=== PATIENT | female | born 1970 | race Caucasian/White ===

== ENCOUNTER 2023-02-15 11:07 | Outpatient (OUT) | payer OTHER, SELFPAY ==
[2023-02-15 12:36] LABS: Free T3 1.61 pg/mL (2.18-3.98)
== END 2023-02-15 11:08 ==
LOC: LAB 11:14
PROVIDERS: PCP Nurse Practitioner Family; Visit Provider Nurse Practitioner Family
DX: E03.9 Hypothyroidism, unspecified (principal)
CPT/HCPCS: 36415; 84436; 84443; 84481

== ENCOUNTER 2023-03-20 10:37 | Outpatient (OUT) | payer OTHER, SELFPAY ==
[2023-03-20 11:26] LABS: Alanine Aminotransferase 38 U/L (14-59); Albumin Level 3.9 g/dL (3.4-5.0); Alkaline Phosphatase 82 U/L (46-116); Anion Gap 13.2; Aspartate Amino Transferase 19 U/L (15-37); BUN Creatinine Ratio 19.7; Bilirubin Total 0.5 mg/dL (0.2-1.0); Calcium 9.2 mg/dL (8.5-10.1); Chloride 103 mmol/L (98-107); Estimated GFR (African America >60 (>=60); Estimated GFR (Non-African Ame >60 (>=60); Globulin 3.9 g/dL; Glucose 101 mg/dL (74-106); Potassium 4.2 mmol/L (3.5-5.1); Sodium 140 mmol/L (136-145); Total Protein 7.8 g/dL (6.4-8.2)
[2023-03-20 11:37] LABS: Chol HDL Ratio 5.5; Cholesterol 287 mg/dL (<=200); Free T3 1.79 pg/mL (2.18-3.98); HDL Cholesterol 52 mg/dL (40-60); Thyroid Stimulating Hormone 6.617 uIU/mL (0.358-3.740); Triglycerides 167 mg/dL (<=150); VLDL CHOLESTEROL 33.4 mg/dL
== END 2023-03-20 10:38 | disposition home or self-care (01) ==
PROVIDERS: PCP Nurse Practitioner Family; Visit Provider Nurse Practitioner Family
DX: Z00.00 Encounter for general adult medical examination without abnormal findings (principal)
CPT/HCPCS: 36415; 80053; 80061; 84436; 84443; 84481

== ENCOUNTER 2023-05-15 09:16 | Outpatient (OUT) | payer OTHER, SELFPAY ==
[2023-05-15 10:53] LABS: Carbon Dioxide 23.8 mmol/L (21.0-32.0); Chloride 105 mmol/L (98-107); Potassium 4.5 mmol/L (3.5-5.1); Sodium 139 mmol/L (136-145)
[2023-05-15 10:54] LABS: Alanine Aminotransferase 37 U/L (14-59); Albumin Globulin Ratio 0.9; Albumin Level 3.7 g/dL (3.4-5.0); Alkaline Phosphatase 94 U/L (46-116); Anion Gap 14.7; Aspartate Amino Transferase 22 U/L (15-37); BUN Creatinine Ratio 20.3; Bilirubin Total 0.3 mg/dL (0.2-1.0); Calcium 9.1 mg/dL (8.5-10.1); Cholesterol 214 mg/dL (<=200); Estimated GFR (African America >60 (>=60); Estimated GFR (Non-African Ame >60 (>=60); Globulin 3.9 g/dL; Glucose 103 mg/dL (74-106); HDL Cholesterol 53 mg/dL (40-60); Total Protein 7.6 g/dL (6.4-8.2); Triglycerides 95 mg/dL (<=150)
[2023-05-15 10:55] LABS: Thyroid Stimulating Hormone 2.541 uIU/mL (0.358-3.740)
== END 2023-05-15 09:17 | disposition home or self-care (01) ==
LOC: LAB 09:20
PROVIDERS: PCP Nurse Practitioner Family; Visit Provider Nurse Practitioner Family
DX: Z00.00 Encounter for general adult medical examination without abnormal findings (principal)
CPT/HCPCS: 36415; 80053; 80061; 84436; 84443; 84481

== ENCOUNTER 2024-05-12 10:33 | Outpatient (REF) | payer OTHER, SELFPAY ==
[2024-05-12 10:52] LABS: Internal Control Within Normal Limits; SARS-CoV-2 Ag POSITIVE (NEGATIVE)
== END 2024-05-12 10:34 | disposition home or self-care (01) ==
LOC: LAB 10:33
PROVIDERS: PCP Nurse Practitioner Family; Visit Provider Nurse Practitioner Family
DX: R09.81 Nasal congestion (principal)
CPT/HCPCS: 87811

== ENCOUNTER 2024-05-15 11:22 | Outpatient (REF) | payer OTHER, SELFPAY ==
[2024-05-15 12:21] LABS: Internal Control Within Normal Limits; SARS-CoV-2 Ag NEGATIVE (NEGATIVE)
== END 2024-05-15 11:23 | disposition home or self-care (01) ==
LOC: LAB 11:22
PROVIDERS: PCP Nurse Practitioner Family; Visit Provider Family Medicine
DX: U07.1 COVID-19 (principal)
CPT/HCPCS: 87811

== ENCOUNTER 2025-05-04 06:30 | Outpatient (OUT) | payer OTHER, SELFPAY ==
--- OUTSIDE RECORDS SUMMARY | 2024-11-01 10:06 | XMS_ITS ---
Author Organization The [facility] in [place] Address [address] [place] [address] Care Team Providers Care Medical Facilities Section Director Name Role Phone Rachel Plata Primary Care Provider [phone] [address] [place] Unavailable [phone] REASON FOR VISIT Cough Medications Medication SIG (Take, Route, Fr equency, Duration) Notes Start Date End Date Status Benzonatate 200 MG 1 capsule as needed Orally Three times a day for 10 days 11/01/2024 Active Encounters Encounter Location Date Provider Diagnosis [facility] [address] [facility] [place] [address] 11/01/2024 Te [place] Plan Of Treatment Medication Medication Name Sig Start Date Stop Date Notes Benzonatate 200 MG 1 capsule as needed Orally Three times a day for 10 days 11/01/2024 Progress Notes * Vianca BAILEY MDOB:[birth year] (54 yo F)Acc No.[id number]:11/01/2024 Patient: Vianca ARZOLA :1970 A ge:54 Y S ex:Female Address:[place] [address] * Refills Start Benzonatate Capsule, 200 MG, Orally, 30 Capsule, 1 capsule as needed, Three times a day, 10 days, Refills=0 * true * Date: Generated for Printi ng/Faxing/eTransmitting on: 0 05/04/2025 06:33 AM EDT
--- OUTSIDE RECORDS SUMMARY | 2024-11-14 11:00 | XMS_ITS ---
Author Organization The [facility] in [place] Address [address] [place] [address] Care Team Providers Care Publications Distribution Clerk Name Role Phone SherlynRachel Primary Care Provider Allergies Allergen (clinical drug ingredient) Drug/Non Drug Allergy documented on EMR Reaction Allergy Type Onset Date Status ciprofloxacin Cipro anaphylaxis Drug Allergy A ctive Keflex anaphylaxis Drug Allergy Activ e naproxen Naprosyn anaphylaxis Drug Allergy Activ e Latex Latex anaphylaxis Allergy Active Shellfish (FN) Shellfish-derived Products anaphylaxis Drug Allergy Active Penicillin anaphylaxis Drug Allergy Acti ve REASON FOR VISIT Presents to office with c/o still coughing since having walking pneumonia. Has some lingering laryngitis Medications Medication SIG (Take, Route, Frequency, Duration) Notes Start Date End Date Status predniSONE 20 MG 3 tablets Orally Onc e a day for 5 days 10/25/2024 Active Simvastatin 40 MG TAKE 1 TABLET BY ASHOK TH EVERY EVENING for 90 days Active Omeprazole 40 MG 1 capsule 30 minutes before morning meal Orally Once a day for 90 days 11/23/2023 Active Ibuprofen 800 MG TAKE 1 TABLET BY ASHOK TH EVERY 8 HOURS WITH FOOD OR MILK NEEDED for 30 Active FLUoxetine HCl 20 MG TAKE 3 CAPSULES BY MOUTH EVERY DAY for 90 Active Azithromycin 250 MG 2 tabs today then 1 tab Orally daily for 5 days 10/25/2024 Active Montelukast Sodium 10 MG TAKE 1 TABLET B Y MOUTH EVERY NIGHT for 90 Active Levothyroxine Sodium 150 MCG TAKE 1 TABL ET BY MOUTH EVERY DAY IN THE MORNING ON AN EMPTY STOMACH for 90 days Active Benzonatate 200 MG 1 capsule as needed Orally Three times a day for 10 days 11/01/2024 Active Adipex-P 37.5 MG 1 tablet before breakfast Orally Once a day for 30 days 10/17/2024 Active Social History Tobacco Use: Social History Observation Description Date Details (start date - stop date) Former Smoker 09/06/2004 - 09/06/2008 Tobacco Use/Smoking Question Answer Notes Patient is a former smoker When did you start smoking? 09/06/2004 When did you stop smoking? 09/06/2008 How long has it been since y ou last smoked? 5-10 years Additional Findings: Tobacco Non-User Ex -moderate cigarette smoker (10-19/day) Tobacco use other than smoking: Question Answer Notes Are you an other tobacco user? Yes e x chewer- 32 years Vital Signs Weight 232.4 lbs 11/14/2024 Height 65 in 11/14/2024 Blood pressure systolic 130 mm Hg 11/15/19 25 Blood pressure diastolic 86 mm Hg 025 Temperature 96.4 degrees Fahrenheit 11/15/19 25 Heart Rate 74 /min 11/14/2024 BMI 38.67 kg/m2 11/14/2024 Oximetry 99 % 11/14/2024 Encounters Encounter Location Date Provider Diagnosis [facility] [address] [place] [address] 11/14/2024 Rachel Plata Bronchitis J40 Assessments Encounter Date Diagnosis (ICD Code) Assessment Notes Treatment Notes Treatment Clinical Notes Section Notes 11/14/2024 Bronchitis (ICD-10 - J40) fu if not improving CXR , sputum cx next steps ok for OWN Plan Of Treatment Medication Medication Name Sig Start Date Stop Date Notes predniSONE 20 MG 3 tablets Orally Once a day for 5 days Azithromycin 250 MG 2 tabs today then 1 tab Orally daily for 5 days 10/25/2024 Treatment Notes Assessment Notes Bronchitis fu if not improving CXR , sputum cx next steps ok for OWN Next Appt Details Follow Up: prn, Reason: Progress Notes * Vianca BALIEY MDOB:[birth year] (54 yo F)Acc No.[id number]:11/14/2024 Progress Note Patient: Michael Vianca RODRIGEZ Provider: Nanda Plata ([facility]), AUTOMOBILE SEAT COVER INSTALLER :1970 A ge:54 Y S ex:Female Date:11/14/2024 Address:[address] [place], [id number] Check In:02:54 PM ESTCheck O ut:03:09 PM EST Subjective: * Chief Complaints: * 1 . Presents to office with c/o still coughing since having walking pneumonia. Has some lingering laryngitis. * HPI: G eneral: Had influenza A given zpack and steroid helped tessalon perles helped some coughs some, productive lay down rattling in lungs overall better but worse at night SOB with exertion. * ROS: G eneral/Constitutional: Fever d enies. H eadache d enies. W eight loss?denies. O phthalmologic: Discharge d enies. E ye Pain d enies. I tching and redness d enies. E NT: Patient admits l aryngitis. N jerad congestion d enies. N jerad discharge d enies. S ore throat d enies. C ardiovascular: Chest tightness/ heavy pressure d enies. R apid heart rate d enies. S welling of extremities d enies. C hest pain d enies. ? R espiratory: Productive cough a dmits and chest congestion. C hest pain d enies. C ough a dmits. S hortness of breath d enies. W heezing d enies. G astrointestinal: Abdominal pain d enies. C onstipation d enies. D ecreased appetite d enies. D iarrhea d enies. N ausea d enies. V omiting?denies. G enitourinary: Urinary incontinence d enies. P ainful urination d enies. M usculoskeletal: Back pain d enies. N maite pain d enies. M uscle aches d enies. S kin: Rash d enies. S kin lesion(s) d enies. ? * Active Problem List E66.9 Obese Modified On:11/23/2023W/U Status:confirmed E66.9 Class 2 obesity Modified On:08/08/2024W/U Status:confirmed * Medical History: A lcohol abuse, Asthma, Arthritis, Pratt esophagus, COVID-19, Carotid artery stenosis, Depression with anxiety, Hypertension, Hyperinsulinemia, Hyperlipidemia, Hypothyroidism, Gastro-esophageal reflux disease without esophagitis. * Surgical History: L eft Breast- softball size tissue removed , EGD 2008. * Family History: F ather: alive, Heart Valve issue. M other: alive, anxiety, atrial fib, diagnosed with Unspecified essential hypertension. B rother(s): alive. S ister(s): alive. 3 brother(s) , 1 sister(s) - healthy. . * Social History: T obacco Use: T obacco use other than smoking A re you an other tobacco user? Y es ex chewer- 32 years Tobacco Use/Smoking P atient is a f ormer smoker W hen did you start smoking? 0 09/06/2004 W hen did you stop smoking? 0 09/06/2008 H ow long has it been since you last smoked??5-10 years A dditional Findings: Tobacco Non-User E x-moderate cigarette smoker (10-19/day) * Medications: T aking Adipex-P(Phentermine HCl) 37.5 MG Tablet 1 tablet before breakfast Orally Once a day , Taking Benzonatate 200 MG Capsule 1 capsule as needed Orally Three times a day , Taking FLUoxetine HCl 20 MG Capsule TAKE 3 CAPSULES BY MOUTH EVERY DAY , Taking Ibuprofen 800 MG Tablet TAKE 1 TABLET BY MOUTH EVERY 8 HOURS WITH FOOD OR MILK NEEDED , Taking Levothyroxine Sodium 150 MCG Tablet TAKE 1 TABLET BY MOUTH EVERY DAY IN THE MORNING ON AN EMPTY STOMACH , Taking Montelukast Sodium 10 MG Tablet TAKE 1 TABLET BY MOUTH EVERY NIGHT , Taking Omeprazole 40 MG Capsule Delayed Release 1 capsule 30 minutes before morning meal Orally Once a day , Taking Simvastatin 40 MG Tablet TAKE 1 TABLET BY MOUTH EVERY EVENING , Discontinued Azithromycin 250 MG Tablet 2 tabs today then 1 tab Orally daily , Discontinued predniSONE 20 MG Tablet 3 tablets Orally Once a day , Discontinued Tamiflu(Oseltamivir Phosphate) 75 MG Capsule 1 capsule Orally Twice a day , Medication List reviewed and reconciled with the patient * Allergies: K eflex: anaphylaxis - Allergy - Criticality High, Shellfish-derived Products: anaphylaxis - Allergy - Criticality High, Latex: anaphylaxis - Allergy - Criticality High, Naprosyn: anaphylaxis - Allergy - Criticality High, Penicillin: anaphylaxis - Allergy - Criticality High, Cipro: anaphylaxis. Objective: * Vitals: W t:232.4lbs, Ht: 65 in, BP:130/86mm Hg, Temp:96.4F, HR:74/min, BMI:38.67Index, Oxygen sat %:99%, Ht-cm: 165.1 cm, Wt-k.41 kg. * Examination: G eneral Examinations: GENERAL APPEARANCE: a lert and oriented, i n no acute distress. EYES: c onjunctiva normal, sclera non-icteric. NOSE: n ormal external appearance. LUNGS: d iminished breath sounds in the bases. CARDIO: r egular rate and rhythm, S1, S2 normal. MUSCULOSKELETAL: G ait and station normal. SKIN: w arm and dry. Assessment: * Assessment: 1. B mukesh - Shoaib (Primary) Plan: * Treatment: * Preventive Medicine: Screenings/Counseling: B KS ACTION PLAN Above Normal BMI Follow-up D ietary management education, guidance, and counseling See treatment section of progress note for complete details of management plan. * Follow Up: p rn * * Electronically signed by Blaire Plata , FITO, SHIPPING TRACK SUPERVISOR.AUTOMOBILE SEAT COVER INSTALLER.[id number] on 11/15/2024 at 11:55 AM EDT Sign off status: Completed Visit Status: C HK (Check Out) true * Provider: Nanda Plata ([facility]), AUTOMOBILE SEAT COVER INSTALLER Date: 0 11/14/2024 Generated for José danielle/Darlyn/eTangelasmitting on: 0 05/04/2025 06:32 AM EDT History and Physical Notes * HPI (History of Present Illness) Category Sub-Category Detail Notes Category Not es General Had influenza A given zpack and steroid helped tessalon perles helped some coughs some, productive lay down rattling in lungs overall better but worse at night SOB with exertion Examination Category Sub-Category Detail Notes Category Not es General Examinations GENERAL APPEARANCE: alert a nd oriented, in no acute distress EYES: conjunctiva normal, sclera non-icteric EARS: NOSE: normal external appe arance THROAT: CARDIO: regular rate and rhy thm, S1, S2 normal LUNGS: diminished breath so unds in the bases ABDOMEN: SKIN: warm and dry BACK: MUSCULOSKELETAL: Gait and station nor mal LYMPH NODES:
--- OUTSIDE RECORDS SUMMARY | 2024-11-27 11:44 | XMS_ITS ---
Author Organization The [facility] in [place] Address [address] [place] [address] Care Team Providers Care Computer Terminal Operator Name Role Phone Rachel Plata Primary Care Provider REASON FOR VISIT Sinus Infection Medications Medication SIG (Take, Route, Frequency, Duration) Notes Start Date End Date Status Doxycycline Monohydrate 100 MG 1 capsule Orally BID for 10 days 11/27/2024 Active Encounters Encounter Location Date Provider Diagnosis [address] [address] 11/27/2024 Rachel Plata Plan Of Treatment Medication Medication Name Sig Start Date Stop Date Notes Doxycycline Monohydrate 100 MG 1 capsule Orally BID for 10 days 11/27/2024 Progress Notes * Vianca BAILEY MDOB:[birth year] (54 yo F)Acc No.[id number]:11/27/2024 Patient: Vianca ARZOLA :1970 A ge:54 Y S ex:Female Address:[address] [place] [address] * Refills Start Doxycycline Monohydrate Capsule, 100 MG, Orally, 20 Capsule, 1 capsule, BID, 10 days, Refills=0 Subjective: * Chief Complaints: * S inus Infection * Medical History: * Surgical History: * Hospitalization/Major Diagno stic Procedure: * Medications: Objective: * Vitals: * Physical Examination: Assessment: Plan: * Treatment: * Procedure Codes: * true * Date: Generated for Printi ng/Faxing/eTransmitting on: 0 05/03/2025 03:14 PM EDT
--- OUTSIDE RECORDS SUMMARY | 2024-11-27 11:44 | XMS_ITS ---
Author Organization The [facility] in [place] Address [address] [place] [address] Care Team Providers Care Administrative And Program Specialist Name Role Phone Rachel Plata Primary Care Provider REASON FOR VISIT Sinus Infection Medications Medication SIG (Take, Route, Frequency, Duration) Notes Start Date End Date Status Doxycycline Monohydrate 100 MG 1 capsule Orally BID for 10 days 11/27/2024 Active Encounters Encounter Location Date Provider Diagnosis [address] [address] 11/27/2024 Rachel Plata Plan Of Treatment Medication Medication Name Sig Start Date Stop Date Notes Doxycycline Monohydrate 100 MG 1 capsule Orally BID for 10 days 11/27/2024 Progress Notes * Vianca BAILEY MDOB:[birth year] (54 yo F)Acc No.[id number]:11/27/2024 Patient: Vianca ARZOLA :1970 A ge:54 Y S ex:Female Address:[place] [address] * Refills Start Doxycycline Monohydrate Capsule, 100 [...]
--- OUTSIDE RECORDS SUMMARY | 2025-04-04 04:29 | XMS_ITS ---
Author Organization The [facility] in [place] Address [address] [place] [address] Care Team Providers Care Lockstitch Topstitcher Name Role Phone Rachel Plata Primary Care Provider REASON FOR VISIT Labs due Encounters Encounter Location Date Provider Diagnosis [facility] [address] [facility] [place] [address] 04/04/2025 Rachel Plata Plan Of Treatment No Information Progress Notes * Vianca BAILEY MDOB:[birth year] (55 yo F)Acc No.[id number]:04/04/2025 Patient: Vianca ARZOLA :1970 A ge:55 Y S ex:Female [place] [address] * true * Date: Generated for Buffyi shashi/Princeg/eTransmitting on: 0 05/04/2025 06:33 AM EDT
--- OUTSIDE RECORDS SUMMARY | 2025-04-04 04:29 | XMS_ITS ---
Author Organization The [facility] in [place] Address [address] [place] [address] Care Team Providers Care Rig Superintendent Name Role Phone Rachel Plata Primary Care Provider REASON FOR VISIT Labs due Encounters Encounter Location Date Provider Diagnosis [facility] [address] [facility] [place] [address] 04/04/2025 Rachel Plata Plan Of Treatment No Information Progress Notes * Vianca BAILEY MDOB:[birth year] (55 yo F)Acc No.[id number]:04/04/2025 Patient: Vianca ARZOLA :1970 A ge:55 Y S ex:Female Address:[place] [address] * true * Date: Generated for Buffyi shashi/Princeg/eTransmitting on: 0 05/03/2025 03:14 PM EDT
--- OUTSIDE RECORDS SUMMARY | 2025-04-23 03:59 | XMS_ITS ---
Author Organization The [facility] in [place] Address [address] [place] [address] Care Team Providers Care Lever Operator Name Role Phone Rachel Plata Primary Care Provider [phone] REASON FOR VISIT needs yearly labs Encounters Encounter Location Date Provider Diagnosis [facility] [address] [place] [address] 04/23/2025 Rachel Plata Wellness examination Z00.00 Assessments Encounter Date Diagnosis (ICD Code) Assessment Notes Treatment Notes Treatment Clinical Notes Section Notes 04/23/2025 Wellness examination (ICD-10 - Z00.00) Plan Of Treatment Pending Test Test Name Order Date HEMOGLOBIN A1C (GLYCO) 04/23/2025 IRON, TOTAL 04/23/2025 LIPID PANEL (CHOL/TRIG/HDL/LDL) 04/23/20 25 VITAMIN D, 25 LEVEL (TOTAL) 04/23/2025 Insulin Level 04/23/2025 THYROID PANEL (T4/TSH/FREE T3) 5 CMP (COMP MET WILDER) w/eGFR CKD-EPI 2024 CBC WITH DIFF 04/23/2025 Progress Notes * Vianca BAILEY MDOB:[birth year] (55 yo F)Acc No.[id number]:04/23/2025 Patient: Vianca ARZOLA :1970 A ge:55 Y S ex:Female Address:[place] [address] Subjective: * Chief Complaints: * N eeds yearly labs * Medical History: * Surgical History: * Hospitalization/Major Diagno stic Procedure: * Medications: Objective: * Vitals: * Physical Examination: Assessment: * Assessment: 1. W ellness examination - Z00.00 (Primary) Plan: * Treatment: * Procedure Codes: * true * Date: Generated for José danielle/Darlyn/Efren on: 0 05/04/2025 06:33 AM EDT
--- OUTSIDE RECORDS SUMMARY | 2025-04-23 03:59 | XMS_ITS ---
Author Organization The [facility] in [place] Address [address] [place] [address] Care Team Providers Care Probation Worker Name Role Phone Rachel Plata Primary Care Provider [phone] REASON FOR VISIT needs yearly labs Encounters Encounter Location Date Provider Diagnosis [facility] [address] [place] [address] 04/23/2025 Rachel Plata Wellness examination Z00.00 Assessments [...] Vianca BAILEY MDOB:[birth year] (55 yo F)Acc No.[id number]:04/23/2025 Patient: Vianca ARZOLA :1970 A ge:55 Y S ex:Female Address:[place] [address] Subjective: * Chief Complaints: * N eeds yearly labs * Medical History: * Surgical History: * Hospitalization/Major Diagno stic Procedure: * Medications: Objective: * Vitals: * Physical Examination: Assessment: * Assessment: 1. W ellness examination - Z00.00 (Primary) Plan: * Treatment: * Procedure Codes: * true * Date: Generated for José danielle/Darlyn/Efren on: 0 05/03/2025 03:13 PM EDT
--- OUTSIDE RECORDS SUMMARY | 2025-05-03 15:14 | XMS_ITS | Patient Health Record ---
Author Organization [facility] [place] Address [address] [place] [address] Care Team Providers Care Translational Specialist Name Role Phone Rachel Plata Primary Care Provider Te Arteaga Unavailable [phone] Allergies Allergen (clinical drug ingredient) Drug/Non Drug Allergy documented on EMR Reaction Allergy Type Onset Date Status ciprofloxacin Cipro anaphylaxis Drug Allergy A ctive Keflex anaphylaxis Drug Allergy Activ e naproxen Naprosyn anaphylaxis Drug Allergy Activ e Latex Latex anaphylaxis Allergy Active Shellfish (FN) Shellfish-derived Products anaphylaxis Drug Allergy Active Penicillin anaphylaxis Drug Allergy Acti ve Results Component Value Reference Range Notes COVID-19, Flu A+B IH (Not ye t reviewed by provider) Interpretation: Performing Lab: Notes/Report: COVID - FLU A - FLU B - Control + SARS-CoV-2 Ag* Reviewed date:05/12/2024 01:01:33 PM Interpretation: Performing Lab: Notes/Report: [facility] , SARS-CoV-2 Ag POSITIVE NEGATIVE This test has not been FDA cleared or approved, but has been authorized by the FDA under an Emergency Use Authorization (EUA) for use by authorized laboratories certified under CLIA that meet the requirements to perform moderate or high complexity testing. This test has been authorized only for the detection of proteins from SARS-CoV-2, not for any other viruses or pathogens. The emergency use of this test is authorized for the duration of the declaration that circumstances exist justifying the authorization of emergency use of in vitro diagnostic tests for detection and/or diagnosis of Covid-19 under section 564(b)(1) of the Act, 21 U.S.C. 360bbb-3(b)(1), unless the declaration is terminated or authorization is revoked sooner. Performing Lab: see note ML - [facility] SARS-CoV-2 Ag* Reviewed date:05/15/2024 09:00:02 PM Interpretation: Performing Lab: Notes/Report: [facility] , SARS-CoV-2 Ag NEGATIVE NEGATIVE This test has not been FDA cleared or approved, but has been authorized by the FDA under an Emergency Use Authorization (EUA) for use by authorized laboratories certified under CLIA that meet the requirements to perform moderate or high complexity testing. This test has been authorized only for the detection of proteins from SARS-CoV-2, not for any other viruses or pathogens. The emergency use of this test is authorized for the duration of the declaration that circumstances exist justifying the authorization of emergency use of in vitro diagnostic tests for detection and/or diagnosis of Covid-19 under section 564(b)(1) of the Act, 21 U.S.C. 360bbb-3(b)(1), unless the declaration is terminated or authorization is revoked sooner. Performing Lab: see note ML - [facility] LB COVID-19, Flu A+B IH (Not ye t reviewed by provider) Interpretation: Performing Lab: Notes/Report: COVID neg FLU A positive FLU B neg Control present Reason For Referral No Information Medications Medication SIG (Take, Route, Frequency, Duration) Notes Start Date End Date Status Ibuprofen 800 MG TAKE 1 TABLET BY ASHOK TH EVERY 8 HOURS WITH FOOD OR MILK NEEDED for 30 Active FLUoxetine HCl 20 MG TAKE 3 CAPSULES BY MOUTH EVERY DAY for 90 Active Doxycycline Monohydrate 100 MG 1 capsule Orally BID for 10 days 11/27/2024 Active predniSONE 20 MG 3 tablets Orally Onc e a day for 5 days 10/25/2024 Active Azithromycin 250 MG 2 tabs today then 1 tab Orally daily for 5 days 10/25/2024 Active Benzonatate 200 MG 1 capsule as needed Orally Three times a day for 10 days 11/01/2024 Active Montelukast Sodium 10 MG TAKE 1 TABLET B Y MOUTH EVERY NIGHT for 90 Active Adipex-P 37.5 MG 1 tablet before breakfast Orally Once a day for 30 days 10/17/2024 Active Omeprazole 40 MG 1 capsule 30 minutes before morning meal Orally Once a day for 90 days 11/23/2023 Active Levothyroxine Sodium 150 MCG TAKE 1 TABL ET BY MOUTH ONCE EVERY MORNING ON AN EMPTY STOMACH for 90 Active Simvastatin 40 MG TAKE 1 TABLET BY ASHOK TH EVERY EVENING for 30 days Active Social History Tobacco Use: Social History [...] Tobacco Non-User Ex -moderate cigarette smoker (10-19/day) Alcohol Screen (Audit-C) Question Answer Notes Did you have a drink containing alcohol in the p ast year? No Points 0 Interpretation Negative Tobacco use other than smoking: Question Answer Notes Are you an other tobacco user? Yes e x chewer- 32 years AUDIT-C (Standard) Question Answer Notes Did you have a drink containing alcohol in the p ast year? No Points 0 Interpretation Negative Problems Problem Type SNOMED Code ICD Code Onset Dates Problem Status W/U Status Risk Notes Problem Obese (123064564) Obese (E66.9) Active confirmed Problem Obese class II (finding) (130454456210 105) Class 2 obesity (E66.9) Active confirmed Vital Signs Heart Rate 74 /min 11/14/2024 Temperature 96.4 degrees Fahrenheit 11/14/2024 Oximetry 99 % 11/14/2024 Blood pressure diastolic 86 mm Hg 11/14/2024 Height 65 in 11/14/2024 Blood pressure systolic 130 mm Hg 11/14/2024 Weight 232.4 lbs 11/14/2024 BMI 38.67 kg/m2 11/14/2024 Encounters Encounter Location Date Provider Diagnosis [facility] [address] [place] [address] 04/23/2025 Rachel Plata Wellness examination Z00.00 [facility] [address] [place] [address] 06/07/2024 Rachel Plata Obese E66.9 [facility] [address] [place] [address] 09/12/2024 Rachel Plata [facility] [address] [facility] [place] [address] 10/17/2024 Rachel Plata Class 2 obesity E66. 9 [facility] [address] [facility] [place] [address] 11/01/2024 Te Shieldsy [facility] [address] [facility] [place] [address] 11/27/2024 Rachel Plata [facility] [address] [facility] [place] [address] 04/04/2025 Rachel Plata [facility] [address] [facility] [place] [address] 05/11/2024 Rachel Plata Nasal congestion R09.81 [facility] [address] [facility] [place] [address] 05/12/2024 Rachel Plata [facility] [address] [facility] [place] [address] 05/15/2024 Te Jenni COVID-19 U07.1 [facility] [address] [facility] [place] [address] 05/15/2024 Rachel Plata Wellness examination Z00.00 [facility] [address] [facility] [place] [address] 05/15/2024 Te Arteaga [facility] [address] [facility] [place] [address] 05/26/2024 Rachel Plata Obese E66.9 [facility] [address] [facility] [place] [address] 08/08/2024 Rachel Plata Cough R05.9 and Clas s 2 obesity E66.9 [facility] [address] [facility] [place] [address] 10/17/2024 Te Arteaga Class 2 obesity E66. 9 [facility] [address] [facility] [place] [address] 05/30/2024 Rachel Plata Obese E66.9 [facility] [address] [facility] [place] [address] 09/14/2024 Rachel Sherlyn Class 2 obesity E66. 9 [facility] [address] [place] [address] 10/25/2024 Te Hoy Body aches R52 ; Fever R50.9 and Acute bronchitis, unspecified organism J20.9 [facility] [address] [place] [address] 11/14/2024 Racheldixie Plata Bronchitis J40 Assessments Encounter Date Diagnosis (ICD Code) Assessment Notes Treatment Notes Treatment Clinical Notes Section Notes 05/30/2024 Obese (ICD-10 - E66.9) continue work on diet, exercise down another 17 lbs fu 3 months, monthly [place] wt checks continue adipex handouts given on diet 08/08/2024 Cough (ICD-10 - R05.9) likely viral if fever, worsens notify office otc meds, push fluids, rest 08/08/2024 Class 2 obesity (ICD-10 - E66.9) work on diet fu 4 weeks 09/14/2024 Class 2 obesity (ICD-10 - E66.9) work on diet discussed need for at least 5% wt loss in next 2 months to be able to continue med wt check one month fu apt 2m 10/17/2024 Class 2 obesity (ICD-10 - E66.9) 10/25/2024 Body aches (ICD-10 - R52) 10/25/2024 Fever (ICD-10 - R50.9) 11/14/2024 Bronchitis (ICD-10 - J40) fu if not improving CXR , sputum cx next steps ok for OWN 05/11/2024 Nasal congestion (ICD-10 - R09.81) 05/15/2024 COVID-19 (ICD-10 - U07.1) 05/15/2024 Wellness examination (ICD-10 - Z00.00) 05/26/2024 Obese (ICD-10 - E66.9) 06/07/2024 Obese (ICD-10 - E66.9) 10/17/2024 Class 2 obesity (ICD-10 - E66.9) 04/23/2025 Wellness examination (ICD-10 - Z00.00) 10/25/2024 Acute bronchitis, unspecified organism (ICD-10 - J20.9) Rest and drink more liquids, especially water. You may use a humidifier or vaporizer to help keep the drainage moist. Yiuc-wtq-tfcacdi Nasal Saline may help the stuffy and runny nose. Use Ibuprofen and or Tylenol as needed for fever, chills, body aches or pain. Children 5 years old should not be given rcde-aot-dxnbugo cough and cold medications such as guaifenesin and dextromethorphan. If you're over age 5, you may try nggu-sbe-nsuruyt cold medications such as guaifenesin and dextromethorphan, or multi-symptom cold reliever such as Dayquil to help reduce the symptoms. Antibiotics have been prescribed. You should take these until completed and follow the directions. Antibiotics can sometimes cause upset stomach, and in rare cases, serious allergic reactions or serious gastrointestinal problems. If you start having severe abdominal pain, severe vomiting, or bloody diarrhea, you should be reevaluated by your physician or urgent care immediately. Follow up with your Primary Care Provider or return to clinic if symptoms do not improve within 3-5 days. If you develop severe symptoms such as shortness of breath, repeated vomiting, coughing up blood, or chest pain you should go to the emergency room or call 911 Plan Of Treatment Pending Test Test Name Order Date CMP (COMPLETE METABOLIC PANEL) 3 CMP (COMPLETE METABOLIC PANEL) 3 CMP (COMPLETE METABOLIC PANEL) 4 HEMOGLOBIN A1C (GLYCO) 05/15/2024 HEMOGLOBIN A1C (GLYCO) 04/23/2025 INSULIN, TOTAL 05/15/2024 IRON, TOTAL 04/23/2025 LIPID PANEL (CHOL/TRIG/HDL/LDL) 04/23/20 25 LIPID PANEL (CHOL/TRIG/HDL/LDL) 05/15/20 24 LIPID PANEL (CHOL/TRIG/HDL/LDL) 03/12/20 23 LIPID PANEL (CHOL/TRIG/HDL/LDL) 05/07/20 23 CBC WITH DIFF 05/15/2024 VITAMIN D, 25 LEVEL (TOTAL) 04/23/2025 Insulin Level 04/23/2025 PSA, TOTAL 05/15/2024 Rapid COVID-19 Ag 05/11/2024 COVID-19, Flu A+B IH 08/08/2024 COVID-19, Flu A+B IH 10/25/2024 Covid-19 PCR (CVDTBH) 05/15/2024 THYROID PANEL (T4/TSH/FREE T3) 3 THYROID PANEL (T4/TSH/FREE T3) 4 THYROID PANEL (T4/TSH/FREE T3) 5 CMP (COMP MET WILDER) w/eGFR CKD-EPI 2024 CBC WITH DIFF 04/23/2025 Insurance Providers Payer Name Payer Address Payer Phone Subscriber Number Group Number Insured Name Patient Relationship to Insured Coverage Start Date Coverage End Date [employer] [address] [address] [place] [address] [phone] [id number] Vianca Hodges Self - patient is the insured Medical (General) History Medical History History ICD Code Alcohol abuse F10.10 Asthma J45.909 Arthritis M19.90 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
--- OUTSIDE RECORDS SUMMARY | 2025-05-03 15:41 | XMS_ITS | CCD ---
Author Organization [facility] Care Team Providers Care Duty Engineer Name Role Phone SHELLEY DUARTE Admitting Unavailable GERALD, SHLELEY Attending Unavailable DR EUGENE DAWSON Consulting Unavailable GERALD, SHELLEY Primary Care Unavailable GERALD, SHELLEY Consulting Unavailable GERALD, SHELLEY Attending Unavailable GERALD, SHELLEY Consulting Unavailable GERALD, SHELLEY Primary Care Unavailable GERALD, SHELLEY Admitting Unavailable GERALD, SHELLEY Attending Unavailable GERALD, SHELLEY Consulting Unavailable GERALD, SHELLEY Primary Care Unavailable GERALD, SHELLEY Admitting Unavailable Allergies Allergy Classification Reported Allergen(s) Allergy Type Date of Onset Reaction(s) Facility (1 source) Influenza virus vaccine Drug Allergy 11-20-2015 [facility] Repository (1 source) Latex Drug allergy (disorder) 12-15-2014 [facility] Repository (1 source) Naproxen Drug Allergy 12-15-2014 [facility] Repository (1 source) Penicillins Drug allergy (disorder) 12-15-2014 [facility] Repository Problems Active Problems Problem Classification Problem Date Documented Da te Episodic/Chronic Unclassified (3 sources) CONTACT W/AND (SUSP) EXPOS COVID-19; Translations: [CONTACT W/AND (SUSP) EXPOS COVID-19] Onset: 05-28-2022 Past or Other Problems Problem Classification Problem Date Documented Da te Episodic/Chronic Other non-traumatic joint disorders (4 sources) Pain in left knee; Translations: [PAIN IN LEFT KNEE] Onset: 12-15-2021 Episodic Unclassified (1 source) CONTACT W/AND (SUSP) EXPOS COVID-19; Translations: [CONTACT W/AND (SUSP) EXPOS COVID-19] Onset: 05-27-2022 Results Test Name Value Interpretation Reference Range Facil ity INSULINon 12-03-2022 Insulin 26.8 uIU/mL Critically high 2.6-24.9 [facility] Comment on above: Performed By: #### I NSULIN #### [facility] [address] [place] [address] Dr. Rhianna Anderson CBC AUTO DIFFon 12-02-2022 BASO # 0.0 103/ul Normal 0.0-0.1 [facility] Comment on above: Performed By: #### C BC #### [facility] [address] [place] [address] Dr. Rhianna Anderson Basophils/100 WBC (Bld) 0.8 % Normal 0.2-2.0 [facility] Comment on above: Performed By: #### C BC #### [facility] [address] [place] [address] Dr. Rhianna Anderson EO # 0.2 103/ul Normal 0.0-0.7 [facility] Comment on above: Performed By: #### C BC #### [facility] [address] [place] [address] Dr. Rhianna Anderson Eosinophils/100 WBC (Bld) 4.4 % Normal 0.9-7.0 [facility] Comment on above: Performed By: #### C BC #### [facility] [address] [place] [address] Dr. Rhianna Anderson Erythrocyte distribution width (RBC) [Ratio] 12.6 % Normal 11.0-15.0 [facility] Comment on above: Performed By: #### C BC #### [facility] [address] [place] [address] Dr. Rhianna Anderson Hematocrit (Bld) [Volume fraction] 40.5 % Normal 36.0-48.0 [facility] Comment on above: Performed By: #### C BC #### [facility] [address] [place] [address] Dr. Rhianna Anderson Hemoglobin (Bld) [Mass/Vol] 13.5 g/dL Normal 12.0-16.0 [facility] Comment on above: Performed By: #### C BC #### [facility] [address] [place] [address] Dr. Rhianna Anderson IG # 0.01 10e3/ul Normal 0.00-0.03 [facility] Comment on above: Performed By: #### C BC #### [facility] [address] [address] [address] Rhianna Anderson IG % 0.2 % Normal 0.0-0.5 [facility] Comment on above: Performed By: #### C BC #### [facility] [address] [place] [address] Dr. Rhianna Anderson LYMPH # 2.2 103/ul Normal 1.2-3.8 [facility] Comment on above: Performed By: #### C BC #### [facility] [address] [place] [address] Dr. Rhianna Anderson Lymphocytes/100 WBC (Bld) 43.8 % Normal 20.5-60.0 [facility] Comment on above: Performed By: #### C BC #### [facility] [address] [place] [address] Dr. Rhianna Anderson MANUAL DIFF REQ NO Normal [facility] Comment on above: Performed By: #### C BC #### [facility] [address] [place] [address] Dr. Rhianna Anderson MCH (RBC) [Entitic mass] 29.6 pg Normal 26.7-34.0 [facility] Comment on above: Performed By: #### C BC #### [facility] [address] [place] [address] Dr. Rhianna Anderson MCHC (RBC) [Mass/Vol] 33.3 g/dL Normal 29.9-35.2 [facility] Comment on above: Performed By: #### C BC #### [facility] [address] [place] [address] Dr. Rhianna Anderson MCV (RBC) [Entitic vol] 88.8 fL Normal 81.0-99.0 [facility] Comment on above: Performed By: #### C BC #### [facility] [address] [place] [address] Dr. Rhianna Anderson MONO # 0.3 103/ul Normal 0.3-0.8 [facility] Comment on above: Performed By: #### C BC #### [facility] [address] [place] [address] Dr. Rhianna Anderson Monocytes/100 WBC (Bld) 6.2 % Normal 1.7-12.0 [facility] Comment on above: Performed By: #### C BC #### [facility] [address] [place] [address] Dr. Rhianna Anderson NEUT # 2.2 103/ul Normal 1.4-6.5 [facility] Comment on above: Performed By: #### C BC #### [facility] [address] [place] [address] Dr. Rhianna Anderson Neutrophils/100 WBC (Bld) 44.6 % Normal 43.0-75.0 [facility] Comment on above: Performed By: #### C BC #### [facility] [address] [place] [address] Dr. Rhianna Anderson Platelet mean volume (Bld) [Entitic vol] 9.6 fL Normal 9.5-13.5 [facility] Comment on above: Performed By: #### C BC #### [facility] [address] [place] [address] Dr. Rhianna Anderson PLT 304 103/ul Normal 150-450 [facility] Comment on above: Performed By: #### C BC #### [facility] [address] [place] [address] Dr. Rhianna Anderson RBC 4.56 106/ul Normal 4.20-5.40 [facility] Comment on above: Performed By: #### C BC #### [facility] [address] [place] [address] Dr. Rhianna Anderson WBC 5.0 103/ul Normal 4.0-11.0 [facility] Comment on above: Performed By: #### C BC #### [facility] [address] [place] [address] Dr. Rhianna Anderson FREE THYROXINE INDEX T7on FTI 3.24 Normal 1.30-4.50 [facility] Comment on above: Performed By: #### T 7, LIPID, CMP, TSH #### [facility] [address] [address] [address] Rhianna Anderson T3U 36.0 % Normal 30.0-39.0 [facility] Comment on above: Performed By: #### T 7, LIPID, CMP, TSH #### [facility] [address] [place] [address] Dr. Rhianna Anderson T4 [Mass/Vol] 9.00 ug/dL Normal 4.80-13.90 [facility] Comment on above: Performed By: #### T 7, LIPID, CMP, TSH #### [facility] [address] [place] [address] Dr. Rhianna Anderson GLYCOHEMOGLOBIN A1Con 2022 ADA RECOMMENDATION SEE BELOW Normal [facility] Comment on above: Result Comment: ADA RECOMMENDED LIMIT 4.0 - 6.0 ADA THERAPEUTIC TARGET < 7.0 ACTION SUGGESTED > 7.0 Performed By: #### A 1C #### [facility] [address] [place] [address] Dr. Rhianna Anderson Glucose [Mass/Vol] 123 mg/dL Normal [facility] Comment on above: Performed By: #### A 1C #### [facility] [address] [place] [address] Dr. Rhianna Anderson HbA1c (Bld) [Mass fraction] 5.9 % Normal 4.5-6.2 [facility] Comment on above: Performed By: #### A 1C #### [facility] [address] [place] [address] Dr. Rhianna Anderson IRONon 12-02-2022 Iron [Mass/Vol] 64.0 ug/dL Normal 50.0-170.0 [facility] Comment on above: Performed By: #### I AZIZA #### [facility] [address] [place] [address] Dr. Rhianna Anderson LIPID PROFILEon 12-02-2022 CHOL-HDL RATIO NORM SEE BELOW Normal [facility] Comment on above: Result Comment: 3.3 - 4.4 LOW RISK 4.4 - 7.1 AVERAGE RISK 7.1 - 11.0 MODERATE RISK >11.0 HIGH RISK Performed By: #### T 7, LIPID, CMP, TSH #### [facility] [address] [address] [address] Rhianna Anderson Cholesterol [Mass/Vol] 272 mg/dL Critically high <=200 [facility] Comment on above: Performed By: #### T 7, LIPID, CMP, TSH #### [facility] [address] [address] [address] Rhianna Anderson Cholesterol in HDL [Mass/Vol] 47 mg/dL Normal 40-60 [facility] Comment on above: Performed By: #### T 7, LIPID, CMP, TSH #### [facility] [address] [address] [address] Rhianna Anderson Cholesterol in LDL [Mass/Vol] 196.2 mg/dL Normal [facility] Comment on above: Performed By: #### T 7, LIPID, CMP, TSH #### [facility] [address] [place] [address] Dr. Rhianna Anderson Cholesterol.total/Cho lesterol in HDL [Mass ratio] 5.8 {ratio} Normal [facility] Comment on above: Performed By: #### T 7, LIPID, CMP, TSH #### [facility] [address] [address] [address] Rhianna Anderson HDL NORMAL > or = 60 mg/dl - LOW CARDIOVASCULAR RISK <40 mg/dl - HIGH CARDIOVASCULAR RISK Normal [facility] Comment on above: Performed By: #### T 7, LIPID, CMP, TSH #### [facility] [address] [address] [address] Rhianna Anderson LDL CALC NORMAL SEE BELOW Normal [facility] Comment on above: Result Comment: <100 mg/dl OPTIMAL 100 - 129 mg/dl NEAR OR ABOVE OPTIMAL 130 - 159 mg/dl BORDERLINE HIGH 160 - 189 mg/dl HIGH >190 mg/dl VERY HIGH Performed By: #### T 7, LIPID, CMP, TSH #### [facility] [address] [address] [address] Rhianna Anderson Triglyceride [Mass/Vol] 144 mg/dL Normal <=150 [facility] Comment on above: Performed By: #### T 7, LIPID, CMP, TSH #### [facility] [address] [address] [address] Rhianna Anderson VLDL CALC 28.8 mg/dL Normal [facility] Comment on above: Performed By: #### T 7, LIPID, CMP, TSH #### [facility] [address] [address] [address] Rhianna Anderson PROF 14(COMP METB)on 023 Albumin [Mass/Vol] 3.8 g/dL Normal 3.4-5.0 [facility] Comment on above: Performed By: #### T 7, LIPID, CMP, TSH #### [facility] [address] [address] [address] Rhianna Anderson Albumin/Globulin [Mass ratio] 1.1 {ratio} Normal [facility] Comment on above: Performed By: #### T 7, LIPID, CMP, TSH #### [facility] [address] [address] [address] Rhianna Anderson ALP [Catalytic activity/Vol] 86 U/L Normal 46-116 [facility] Comment on above: Performed By: #### T 7, LIPID, CMP, TSH #### [facility] [address] [address] [address] Rhianna Anderson ALT [Catalytic activity/Vol] 51 U/L Normal 14-59 [facility] Comment on above: Performed By: #### T 7, LIPID, CMP, TSH #### [facility] [address] [address] [address] Rhianna Anderson Anion gap [Moles/Vol] 12.8 mmol/L Normal [facility] Comment on above: Performed By: #### T 7, LIPID, CMP, TSH #### [facility] [address] [address] [address] Rhianna Anderson AST [Catalytic activity/Vol] 25 U/L Normal 15-37 [facility] Comment on above: Performed By: #### T 7, LIPID, CMP, TSH #### [facility] [address] [address] [address] Rhianna Anderson Bilirubin [Mass/Vol] 0.3 mg/dL Normal 0.2-1.0 [facility] Comment on above: Performed By: #### T 7, LIPID, CMP, TSH #### [facility] [address] [place] [address] Dr. Rhianna Anderson Calcium [Mass/Vol] 9.3 mg/dL Normal 8.5-10.1 [facility] Comment on above: Performed By: #### T 7, LIPID, CMP, TSH #### [facility] [address] [place] [address] Dr. Rhianna Anderson Chloride [Moles/Vol] 107 mmol/L Normal 98-107 [facility] Comment on above: Performed By: #### T 7, LIPID, CMP, TSH #### [facility] [address] [place] [address] Dr. Rhianna Anderson CO2 [Moles/Vol] 27.3 mmol/L Normal 21.0-32.0 [facility] Comment on above: Performed By: #### T 7, LIPID, CMP, TSH #### [facility] [address] [place] [address] Dr. Rhianna Anderson Creatinine [Mass/Vol] 0.84 mg/dL Normal 0.55-1.02 [facility] Comment on above: Performed By: #### T 7, LIPID, CMP, TSH #### [facility] [address] [place] [address] Dr. Rhianna Anderson EGFR-AF BURMESE >60 Normal >=60 [facility] Comment on above: Performed By: #### T 7, LIPID, CMP, TSH #### [facility] [address] [place] [address] Dr. Rhianna Anderson EGFR-NON AF BURMESE >60 Normal >=60 [facility] Comment on above: Performed By: #### T 7, LIPID, CMP, TSH #### [facility] [address] [place] [address] Dr. Rhianna Anderson Globulin (S) [Mass/Vol] 3.5 g/dL Normal [facility] Comment on above: Performed By: #### T 7, LIPID, CMP, TSH #### [facility] [address] [place] [address] Dr. Rhianna Anderson Glucose [Mass/Vol] 108 mg/dL Critically high 74-106 T [facility] Comment on above: Performed By: #### T 7, LIPID, CMP, TSH #### [facility] [address] [address] [address] Rhianna Anderson Potassium [Moles/Vol] 4.1 mmol/L Normal 3.5-5.1 [facility] Comment on above: Performed By: #### T 7, LIPID, CMP, TSH #### [facility] [address] [address] [address] Rhianna Anderson Protein [Mass/Vol] 7.3 g/dL Normal 6.4-8.2 [facility] Comment on above: Performed By: #### T 7, LIPID, CMP, TSH #### [facility] [address] [address] [address] Rhianna Anderson Sodium [Moles/Vol] 143 mmol/L Normal 136-145 [facility] Comment on above: Performed By: #### T 7, LIPID, CMP, TSH #### [facility] [address] [address] [address] Rhianna Anderson Urea nitrogen [Mass/Vol] 12.0 mg/dL Normal 7.0-18.0 [facility] Comment on above: Performed By: #### T 7, LIPID, CMP, TSH #### [facility] [address] [place] [address] Dr. Rhianna Anderson Urea nitrogen/Creatinine [Mass ratio] 14.3 mg/mg Normal [facility] Comment on above: Performed By: #### T 7, LIPID, CMP, TSH #### [facility] [address] [place] [address] Dr. Rhianna Anderson TSHon 12-02-2022 TSH 4.448 uIU/mL Critically high 0.358-3.740 [facility] Comment on above: Performed By: #### T 7, LIPID, CMP, TSH #### [facility] [address] [address] [address] Rhianna Anderson Covid-19 PCR (CVDTB)on 05-08 SARS-CoV-2 (COVID-19) RNA FAIZAN+probe Ql (Unsp spec) Not detected Normal NOT DETECTED [facility] Comment on above: Result Comment: When diagnostic testing is negative, the possibility of a false negative should be considered in the context of a patient's recent exposures and the presence of clinical signs and symptoms consistent with SARS-CoV-2. This test is not yet approved or cleared by the [place] FDA. When there are no FDA-approved or cleared tests available, and other criteria are met, FDA can make tests available under an emergency access mechanism called an Emergency Use Authorization (EUA). The EUA for this test is supported by the Inspector Rag Sorting of Health and Human Service's declaration that circumstances exist to justify the emergency use of in vitro diagnostics for the detection and/or diagnosis of the virus that causes COVID-19. This EUA will remain in effect for the duration of the COVID-19 declaration justifying emergency of IVDs, unless it is terminated or revoked by the FDA (after which the test may no longer be used). Performed By: #### [facility] #### [facility] [address] [place] [address] Dr. Rhianna Anderson MRI KNEE LT WO CONon 022 MRI KNEE LT WO CON EXAMINATION: MRI KNEE LT WO CON HISTORY: Pain of left knee joint ; acute posterior knee pain; felt popping sensation COMPARISON: XR knee left 12/03/2021 TECHNIQUE: A complete multi-planar MRI was performed. FINDINGS: MEDIAL COMPARTMENT MEDIAL MENISCUS: No visible tear or significant degeneration. CARTILAGE: No visible defect. BONES: No marrow pathology, fracture, or significant arthropathy. MCL AND MEDIAL CAPSULE: Normal medial collateral ligament and medial capsule. LATERAL COMPARTMENT LATERAL MENISCUS: No visible tear or significant degeneration. CARTILAGE: No visible defect. BONES: No marrow pathology, fracture, or significant arthropathy. LCL/POSTEROLAT COMPLEX: Normal lateral collateral ligament, fascicles, lateral capsule and ligaments. ANTERIOR COMPARTMENT PATELLA: No marrow pathology, fracture, or significant arthropathy. CARTILAGE: No visible defect. TENDONS: Normal. EFFUSION: None. No synovitis or loose bodies. ACL: Normal appearing ligament. PCL: Normal appearing ligament. MENISCOFEMORAL: Normal meniscofemoral ligaments. OTHER: Negative. IMPRESSION: 1. Normal examination. No acute findings or significant degenerative changes. Electronically authenticated by: EUGENE DAWSON Date: 2021-12-15 16:46 Normal [facility] Encounters Encounter Date Encounter Type Care Provider Facility Start: 12-08-2022 Encounter for genera l adult medical examination without abnormal findings SHELLEY DUARTE [facility] Start: 12-02-2022 End: 12-03-2022 ambulatory SHELLEY DUARTE Facility:[facility] Start: 12-02-2022 End: 12-03-2022 Encounter for general adult medical examination without abnormal findings SHELLEY DUARTE Facility:[facility] Start: 05-27-2022 End: 05-27-2022 ambulatory SHELLEY DUARTE Facility:[facility] Start: 12-15-2021 End: 12-16-2021 ambulatory SHELLEY DUARTE Facility:[facility] Payers Date Payer Category Payer Unknown [id number] [id number] 1970 Unknown [id number] 1971 Unknown [id number] 1959 Unknown [id number] Summary Purpose Family History No Family History Records Found Advance Directives No Advanced Directives Records Found Additional Source Comments INFORMATION SOURCE (unrecogn ized section and content) DATE CREATED AUTHOR 12/11/[address] [facility] FOR RECORDS PERTAINING TO PATIENTS WHO ARE OR HAVE BEEN ENROLLED IN A CHEMICAL DEPENDENCY/SUBSTANCEABUSE PROGRAM, SOME INFORMATION MAY BE OMITTED. This clinical summary was aggregated from multiple sources. Caution should be exercised in using it in the provision of clinical care. This summary normalizes information from multiple sources, and as a consequence, information in this document may materially change the coding, format and clinical context of patient data. In addition, data may be omitted in some cases. CLINICAL DECISIONS SHOULD BE BASED ON THE PRIMARY CLINICAL RECORDS. [facility]. provides no warranty or guarantee of the accuracy or completeness of information in this document.
--- OUTSIDE RECORDS SUMMARY | 2025-05-04 06:32 | XMS_ITS | CCD ---
Author Organization [facility] Care Team Providers Care Machinist Apprentice Wood Name Role Phone SHELLEY DUARTE Admitting Unavailable GERALD, SHELLEY Attending Unavailable DR EUGENE DAWSON Consulting Unavailable [...] Influenza virus vaccine Drug Allergy 11-20-2015 [facility] (1 source) Latex Drug allergy (disorder) 12-15-2014 [facility] (1 source) Naproxen Drug Allergy 12-15-2014 [facility] (1 source) Penicillins Drug allergy (disorder) 12-15-2014 [facility] Problems Active Problems Problem Classification Problem [...] Insulin 26.8 uIU/mL Critically high 2.6-24.9 [facility] Comment on above: Performed By: #### I NSULIN #### [facility] [address] [place] [address] Dr. Rhianna Anderson CBC AUTO DIFFon 12-02-2022 BASO # 0.0 103/ul Normal 0.0-0.1 [facility] Comment on above: Performed By: #### C BC #### [facility] [address] [place] [address] Dr. Rhianna Anderson Basophils/100 WBC (Bld) 0.8 % Normal 0.2-2.0 [facility] Comment on above: Performed By: #### C BC #### [facility] [address] [place] [address] Dr. Rhianna Anderson EO # 0.2 103/ul Normal 0.0-0.7 [facility] Comment on above: Performed By: #### C BC #### [facility] [address] [place] [address] Dr. Rhianna Anderson Eosinophils/100 WBC (Bld) 4.4 % Normal 0.9-7.0 [facility] Comment on above: Performed By: #### C BC #### [facility] [address] [place] [address] Dr. Rhianna Anderson Erythrocyte distribution width (RBC) [Ratio] 12.6 % Normal 11.0-15.0 [facility] Comment on above: Performed By: #### C BC #### [facility] [address] [place] [address] Dr. Rhianna Anderson Hematocrit (Bld) [Volume fraction] 40.5 % Normal 36.0-48.0 [facility] Comment on above: Performed By: #### C BC #### [facility] [address] [place] [address] Dr. Rhianna Anderson Hemoglobin (Bld) [Mass/Vol] 13.5 g/dL Normal 12.0-16.0 [facility] Comment on above: Performed By: #### C BC #### [facility] [address] [place] [address] Dr. Rhianna Anderson IG # 0.01 10e3/ul Normal 0.00-0.03 [facility] Comment on above: Performed By: #### C BC #### [facility] [address] [address] [address] Rhianna Anderson IG % 0.2 % Normal 0.0-0.5 [facility] Comment on above: Performed By: #### C BC #### [facility] [address] [place] [address] Dr. Rhianna Anderson LYMPH # 2.2 103/ul Normal 1.2-3.8 [facility] Comment on above: Performed By: #### C BC #### [facility] [address] [place] [address] Dr. Rhianna Anderson Lymphocytes/100 WBC (Bld) 43.8 % Normal 20.5-60.0 [facility] Comment on above: Performed By: #### C BC #### [facility] [address] [place] [address] Dr. Rhianna Anderson MANUAL DIFF REQ NO Normal [facility] Comment on above: Performed By: #### C BC #### [facility] [address] [place] [address] Dr. Rhianna Anderson MCH (RBC) [Entitic mass] 29.6 pg Normal 26.7-34.0 [facility] Comment on above: Performed By: #### C BC #### [facility] [address] [place] [address] Dr. Rhianna Anderson MCHC (RBC) [Mass/Vol] 33.3 g/dL Normal 29.9-35.2 [facility] Comment on above: Performed By: #### C BC #### [facility] [address] [place] [address] Dr. Rhianna Anderson MCV (RBC) [Entitic vol] 88.8 fL Normal 81.0-99.0 [facility] Comment on above: Performed By: #### C BC #### [facility] [address] [place] [address] Dr. Rhianna Anderson MONO # 0.3 103/ul Normal 0.3-0.8 [facility] Comment on above: Performed By: #### C BC #### [facility] [address] [place] [address] Dr. Rhianna Anderson Monocytes/100 WBC (Bld) 6.2 % Normal 1.7-12.0 [facility] Comment on above: Performed By: #### C BC #### [facility] [address] [place] [address] Dr. Rhianna Anderson NEUT # 2.2 103/ul Normal 1.4-6.5 [facility] Comment on above: Performed By: #### C BC #### [facility] [address] [place] [address] Dr. Rhianna Anderson Neutrophils/100 WBC (Bld) 44.6 % Normal 43.0-75.0 [facility] Comment on above: Performed By: #### C BC #### [facility] [address] [place] [address] Dr. Rhianna Anderson Platelet mean volume (Bld) [Entitic vol] 9.6 fL Normal 9.5-13.5 [facility] Comment on above: Performed By: #### C BC #### [facility] [address] [place] [address] Dr. Rhianna Anderson PLT 304 103/ul Normal 150-450 [facility] Comment on above: Performed By: #### C BC #### [facility] [address] [place] [address] Dr. Rhianna Anderson RBC 4.56 106/ul Normal 4.20-5.40 [facility] Comment on above: Performed By: #### C BC #### [facility] [address] [place] [address] Dr. Rhianna Anderson WBC 5.0 103/ul Normal 4.0-11.0 [facility] Comment on above: Performed By: #### C BC #### [facility] [address] [place] [address] Dr. Rhianna Anderson FREE THYROXINE INDEX T7on FTI 3.24 Normal 1.30-4.50 [facility] Comment on above: Performed By: #### T 7, LIPID, CMP, TSH #### [facility] [address] [address] [address] Rhianna Anderson T3U 36.0 % Normal 30.0-39.0 [facility] Comment on above: Performed By: #### T 7, LIPID, CMP, TSH #### [facility] [address] [place] [address] Dr. Rhianna Anderson T4 [Mass/Vol] 9.00 ug/dL Normal 4.80-13.90 [facility] Comment on above: Performed By: #### T 7, LIPID, CMP, TSH #### [facility] [address] [place] [address] Dr. Rhianna Anderson GLYCOHEMOGLOBIN A1Con 2022 ADA RECOMMENDATION SEE BELOW Normal [facility] Comment on above: Result Comment: ADA RECOMMENDED LIMIT 4.0 - 6.0 ADA THERAPEUTIC TARGET < 7.0 ACTION SUGGESTED > 7.0 Performed By: #### A 1C #### [facility] [address] [place] [address] Dr. Rhianna Anderson Glucose [Mass/Vol] 123 mg/dL Normal [facility] Comment on above: Performed By: #### A 1C #### [facility] [address] [place] [address] Dr. Rhianna Anderson HbA1c (Bld) [Mass fraction] 5.9 % Normal 4.5-6.2 [facility] Comment on above: Performed By: #### A 1C #### [facility] [address] [place] [address] Dr. Rhianna Anderson IRONon 12-02-2022 Iron [Mass/Vol] 64.0 ug/dL Normal 50.0-170.0 [facility] Comment on above: Performed By: #### I AZIZA #### [facility] [address] [place] [address] Dr. Rhianna Anderson LIPID PROFILEon 12-02-2022 CHOL-HDL RATIO NORM SEE BELOW Normal [facility] Comment on above: Result Comment: 3.3 - 4.4 LOW RISK 4.4 - 7.1 AVERAGE RISK 7.1 - 11.0 MODERATE RISK >11.0 HIGH RISK Performed By: #### T 7, LIPID, CMP, TSH #### [facility] [address] [address] [address] Rhianna Anderson Cholesterol [Mass/Vol] 272 mg/dL Critically high <=200 [facility] Comment on above: Performed By: #### T 7, LIPID, CMP, TSH #### [facility] [address] [address] [address] Rhianna Anderson Cholesterol in HDL [Mass/Vol] 47 mg/dL Normal 40-60 [facility] Comment on above: Performed By: #### T 7, LIPID, CMP, TSH #### [facility] [address] [address] [address] Rhianna Anderson Cholesterol in LDL [Mass/Vol] 196.2 mg/dL Normal [facility] Comment on above: Performed By: #### T 7, LIPID, CMP, TSH #### [facility] [address] [place] [address] Dr. Rhianna Anderson Cholesterol.total/Cho lesterol in HDL [Mass ratio] 5.8 {ratio} Normal [facility] Comment on above: Performed By: #### T 7, LIPID, CMP, TSH #### [facility] [address] [address] [address] Rhianna Anderson HDL NORMAL > or = 60 mg/dl - LOW CARDIOVASCULAR RISK <40 mg/dl - HIGH CARDIOVASCULAR RISK Normal [facility] Comment on above: Performed By: #### T 7, LIPID, CMP, TSH #### [facility] [address] [address] [address] Rhianna Anderson LDL CALC NORMAL SEE BELOW Normal [facility] Comment on above: Result Comment: <100 mg/dl OPTIMAL 100 - 129 mg/dl NEAR OR ABOVE OPTIMAL 130 - 159 mg/dl BORDERLINE HIGH 160 - 189 mg/dl HIGH >190 mg/dl VERY HIGH Performed By: #### T 7, LIPID, CMP, TSH #### [facility] [address] [address] [address] Rhianna Anderson Triglyceride [Mass/Vol] 144 mg/dL Normal <=150 [facility] Comment on above: Performed By: #### T 7, LIPID, CMP, TSH #### [facility] [address] [address] [address] Rhianna Anderson VLDL CALC 28.8 mg/dL Normal [facility] Comment on above: Performed By: #### T 7, LIPID, CMP, TSH #### [facility] [address] [address] [address] Rhianna Anderson PROF 14(COMP METB)on 023 Albumin [Mass/Vol] 3.8 g/dL Normal 3.4-5.0 [facility] Comment on above: Performed By: #### T 7, LIPID, CMP, TSH #### [facility] [address] [address] [address] Rhianna Anderson Albumin/Globulin [Mass ratio] 1.1 {ratio} Normal [facility] Comment on above: Performed By: #### T 7, LIPID, CMP, TSH #### [facility] [address] [address] [address] Rhianna Anderson ALP [Catalytic activity/Vol] 86 U/L Normal 46-116 [facility] Comment on above: Performed By: #### T 7, LIPID, CMP, TSH #### [facility] [address] [address] [address] Rhianna Anderson ALT [Catalytic activity/Vol] 51 U/L Normal 14-59 [facility] Comment on above: Performed By: #### T 7, LIPID, CMP, TSH #### [facility] [address] [address] [address] Rhianna Anderson Anion gap [Moles/Vol] 12.8 mmol/L Normal [facility] Comment on above: Performed By: #### T 7, LIPID, CMP, TSH #### [facility] [address] [address] [address] Rhianna Anderson AST [Catalytic activity/Vol] 25 U/L Normal 15-37 [facility] Comment on above: Performed By: #### T 7, LIPID, CMP, TSH #### [facility] [address] [address] [address] Rhianna Anderson Bilirubin [Mass/Vol] 0.3 mg/dL Normal 0.2-1.0 [facility] Comment on above: Performed By: #### T 7, LIPID, CMP, TSH #### [facility] [address] [place] [address] Dr. Rhianna Anderson Calcium [Mass/Vol] 9.3 mg/dL Normal 8.5-10.1 [facility] Comment on above: Performed By: #### T 7, LIPID, CMP, TSH #### [facility] [address] [place] [address] Dr. Rhianna Anderson Chloride [Moles/Vol] 107 mmol/L Normal 98-107 [facility] Comment on above: Performed By: #### T 7, LIPID, CMP, TSH #### [facility] [address] [place] [address] Dr. Rhianna Anderson CO2 [Moles/Vol] 27.3 mmol/L Normal 21.0-32.0 [facility] Comment on above: Performed By: #### T 7, LIPID, CMP, TSH #### [facility] [address] [place] [address] Dr. Rhianna Anderson Creatinine [Mass/Vol] 0.84 mg/dL Normal 0.55-1.02 [facility] Comment on above: Performed By: #### T 7, LIPID, CMP, TSH #### [facility] [address] [place] [address] Dr. Rhianna Anderson EGFR-AF GEORGIAN >60 Normal >=60 [facility] Comment on above: Performed By: #### T 7, LIPID, CMP, TSH #### [facility] [address] [place] [address] Dr. Rhianna Anderson EGFR-NON AF GEORGIAN >60 Normal >=60 [facility] Comment on above: Performed By: #### T 7, LIPID, CMP, TSH #### [facility] [address] [place] [address] Dr. Rhianna Anderson Globulin (S) [Mass/Vol] 3.5 g/dL Normal [facility] Comment on above: Performed By: #### T 7, LIPID, CMP, TSH #### [facility] [address] [place] [address] Dr. Rhianna Anderson Glucose [Mass/Vol] 108 mg/dL Critically high 74-106 [facility] Comment on above: Performed By: #### T 7, LIPID, CMP, TSH #### [facility] [address] [address] [address] Rhianna Anderson Potassium [Moles/Vol] 4.1 mmol/L Normal 3.5-5.1 [facility] Comment on above: Performed By: #### T 7, LIPID, CMP, TSH #### [facility] [address] [address] [address] Rhianna Anderson Protein [Mass/Vol] 7.3 g/dL Normal 6.4-8.2 [facility] Comment on above: Performed By: #### T 7, LIPID, CMP, TSH #### [facility] [address] [address] [address] Rhianna Anderson Sodium [Moles/Vol] 143 mmol/L Normal 136-145 [facility] Comment on above: Performed By: #### T 7, LIPID, CMP, TSH #### [facility] [address] [address] [address] Rhianna Anderson Urea nitrogen [Mass/Vol] 12.0 mg/dL Normal 7.0-18.0 [facility] Comment on above: Performed By: #### T 7, LIPID, CMP, TSH #### [facility] [address] [place] [address] Dr. Rhianna Anderson Urea nitrogen/Creatinine [Mass ratio] 14.3 mg/mg Normal [facility] Comment on above: Performed By: #### T 7, LIPID, CMP, TSH #### [facility] [address] [place] [address] Dr. Rhianna Anderson TSHon 12-02-2022 TSH 4.448 uIU/mL Critically high 0.358-3.740 [facility] Comment on above: Performed By: #### T 7, LIPID, CMP, TSH #### [facility] [address] [address] [address] Rhianna Anderson Covid-19 PCR (CVDTB)on 05-08 SARS-CoV-2 (COVID-19) RNA FAIZAN+probe Ql (Unsp spec) Not detected Normal NOT DETECTED [facility] Comment on above: Result Comment: When diagnostic [...] for this test is supported by the Mirror Specialist of Health and Human Service's declaration that [...] longer be used). Performed By: #### C [facility] #### [facility] [address] [place] [address] Dr. Rhianna Anderson MRI KNEE LT WO [...] EUGENE DAWSON Date: 2021-12-15 16:46 Normal [facility] Encounters Encounter Date Encounter Type Care Provider Facility Start: 12-08-2022 Encounter for genera l adult medical examination without abnormal findings SHELLEY DUARTE [facility] Start: 12-02-2022 End: 12-03-2022 ambulatory SHELLEY DUARTE Facility:[facility] Start: 12-02-2022 End: 12-03-2022 Encounter for general adult medical examination without abnormal findings SHELLEY DUARTE Facility:[facility] Start: 05-27-2022 End: 05-27-2022 ambulatory SHELLEY DUARTE Facility:[facility] Start: 12-15-2021 End: 12-16-2021 ambulatory SHELLEY DUARTE Facility:[facility] Payers Date Payer Category Payer Unknown [id number] [id number] [id number] 1970 Unknown [id number] 1971 Unknown [id number] 1959 Unknown [id number] Summary Purpose Family History No Family History Records Found Advance Directives No Advanced Directives Records Found Additional Source Comments INFORMATION SOURCE (unrecogn ized section and content) DATE CREATED AUTHOR 12/11/2022 [facility] FOR RECORDS PERTAINING TO PATIENTS WHO [...] BE BASED ON THE PRIMARY CLINICAL RECORDS. [facility] [employer] [facility]. provides no warranty or guarantee of the accuracy or completeness of information in this document.
--- OUTSIDE RECORDS SUMMARY | 2025-05-04 06:33 | XMS_ITS | Patient Health Record ---
Author Organization [facility] [place] Address [address] [place] [address] Care Team Providers Care Director Medical Safety Name Role Phone Rachel Plata Primary Care Provider Te Arteaga Unavailable [phone] Allergies Allergen (clinical drug ingredient) Drug/Non Drug [...] A - FLU B - Control + COVID-19, Flu A+B IH (Not ye t reviewed by provider) Interpretation: Performing Lab: Notes/Report: COVID neg FLU A positive FLU B neg Control present SARS-CoV-2 Ag* Reviewed date:05/15/2024 09:00:02 PM Interpretation: Performing Lab: Notes/Report: [facility] , SARS-CoV-2 Ag NEGATIVE NEGATIVE This [...] Performing Lab: see note ML - [facility] SARS-CoV-2 Ag* Reviewed date:05/12/2024 01:01:33 PM Interpretation: Performing Lab: Notes/Report: [facility] , SARS-CoV-2 Ag POSITIVE NEGATIVE This [...] Performing Lab: see note ML - [facility] Reason For Referral No Information Medications Medication [...] Status W/U Status Risk Notes Problem Obese (508356468) Obese (E66.9) Active confirmed Problem Obese class II (finding) (692391947095 105) Class 2 obesity (E66.9) Active confirmed Vital Signs Heart Rate 74 /min 11/14/2024 Temperature 96.4 degrees Fahrenheit 11/14/2024 Oximetry 99 % 11/14/2024 Blood pressure diastolic 86 mm Hg 11/14/2024 Height 65 in 11/14/2024 Blood pressure systolic 130 mm Hg 11/14/2024 Weight 232.4 lbs 11/14/2024 BMI 38.67 kg/m2 11/14/2024 Encounters Encounter Location Date Provider Diagnosis [facility] [address] [place] [address] 04/23/2025 Rachel Plata Wellness examination Z00.00 [facility] [address] [place] [address] 06/07/2024 Rachel Plata Obese E66.9 [facility] [address] [place] [address] 09/12/2024 Rachel Plata [facility] [address] [facility] [place] [address] 10/17/2024 Rachel Plata Class 2 obesity E66. 9 [facility] [address] [facility] [place] [address] 11/01/2024 Te Shieldsy [facility] [address] [facility] [place] [address] 11/27/2024 Rachel Plata [facility] [address] [facility] [facility] [place] [address] 04/04/2025 Rachel Plata [facility] [address] [facility] [place] [address] 05/11/2024 Rachel Plata Nasal congestion R09.81 [facility] [address] [facility] [place] [address] 05/12/2024 Rachel Plata [facility] [address] [facility] [place] [address] 05/15/2024 Te Jenni COVID-19 U07.1 [facility] [address] [facility] [place] [address] 05/15/2024 Rachel Plata Wellness examination Z00.00 [facility] [address] [facility] [place] [address] 05/15/2024 Te Arteaga [facility] [address] [facility] [place] [address] 05/26/2024 Rachel Plata Obese E66.9 [facility] [address] [facility] [place] [address] 08/08/2024 Rachel Plata Cough R05.9 and Clas s 2 obesity E66.9 [facility] [address] [facility] [place] [address] 10/17/2024 Te Arteaga Class 2 obesity E66. 9 [facility] [address] [facility] [place] [address] 05/30/2024 Rachel Plata Obese E66.9 [facility] [address] [facility] [place] [address] 09/14/2024 Rachel Sherlyn Class 2 obesity E66. 9 [facility] [address] [place] [address] 10/25/2024 Te Hoy Body aches R52 ; Fever R50.9 and Acute bronchitis, unspecified organism J20.9 [facility] [address] [place] [address] 11/14/2024 Racheldixie Plata Bronchitis J40 Assessments Encounter [...] vaporizer to help keep the drainage moist. Kkxb-duz-zazuyae Nasal Saline may help the stuffy and runny nose. Use Ibuprofen and or Tylenol as needed for fever, chills, body aches or pain. Children 5 years old should not be given pkkh-gln-prbgnqg cough and cold medications such as guaifenesin and dextromethorphan. If you're over age 5, you may try cwvk-ckf-pukjnzb cold medications such as guaifenesin and dextromethorphan, [...] PANEL) 3 CMP (COMPLETE METABOLIC PANEL) 4 CMP (COMPLETE METABOLIC PANEL) 3 HEMOGLOBIN A1C (GLYCO) 05/15/2024 HEMOGLOBIN A1C (GLYCO) 04/23/2025 INSULIN, TOTAL 05/15/2024 IRON, TOTAL 04/23/2025 LIPID PANEL (CHOL/TRIG/HDL/LDL) 03/12/20 23 LIPID PANEL (CHOL/TRIG/HDL/LDL) 05/15/20 24 LIPID PANEL (CHOL/TRIG/HDL/LDL) 04/23/20 25 LIPID PANEL (CHOL/TRIG/HDL/LDL) 05/07/20 23 CBC WITH DIFF 05/15/2024 VITAMIN D, 25 LEVEL (TOTAL) 04/23/2025 Insulin Level 04/23/2025 PSA, TOTAL 05/15/2024 Rapid COVID-19 Ag 05/11/2024 COVID-19, Flu A+B IH 08/08/2024 COVID-19, Flu A+B IH 10/25/2024 Covid-19 PCR (CVDTBH) 05/15/2024 THYROID PANEL (T4/TSH/FREE T3) 4 THYROID PANEL (T4/TSH/FREE T3) 5 THYROID PANEL (T4/TSH/FREE T3) 3 CMP (COMP MET WILDER) w/eGFR CKD-EPI 2024 CBC WITH DIFF 04/23/2025 Insurance Providers Payer Name Payer Address Payer Phone Subscriber Number Group Number Insured Name Patient Relationship to Insured Coverage Start Date Coverage End Date [employer] [address] [address] [place] [address] [id number] Vianca Hodges Self - patient is the [...]
[2025-05-04 06:55] LABS: Hematocrit 38.8 % (36.0-48.0); Hemoglobin 12.8 g/dL (12.0-16.0); Immature Granulocytes Abs Auto 0.01 10^3/uL (0.00-0.03); Immature Granulocytes Pct Auto 0.2 % (0.0-0.5); Lymphocytes Absolute Auto 2.3 10^3/uL (1.2-3.8); Mean Corpuscular HGB Conc 33.0 g/dL (29.9-35.2); Mean Corpuscular Hemoglobin 29.0 pg (26.7-34.0); Mean Corpuscular Volume 87.8 fL (81.0-99.0); Platelet Count 295 10^3/uL (150-450); Red Blood Count 4.42 10^6/uL (4.20-5.40); White Blood Count 5.1 10^3/uL (4.0-11.0)
[2025-05-04 07:27] LABS: Alanine Aminotransferase 28 U/L (14-59); Albumin Globulin Ratio 1.0; Albumin Level 3.7 g/dL (3.4-5.0); Alkaline Phosphatase 75 U/L (46-116); Anion Gap 11.1; Aspartate Amino Transferase 19 U/L (15-37); Blood Urea Nitrogen 13.0 mg/dL (7.0-18.0); Calcium 8.9 mg/dL (8.5-10.1); Carbon Dioxide 29.0 mmol/L (21.0-32.0); Chloride 105 mmol/L (98-107); Cholesterol 283 mg/dL (<=200); Estimated GFR (African America >60 (>=60 mL/min/1.73m^2); Estimated GFR (Non-African Ame >60 (>=60 mL/min/1.73m^2); Free T3 2.67 pg/mL (2.18-3.98); Globulin 3.8 g/dL; Glucose 105 mg/dL (74-106); HDL Cholesterol 56 mg/dL (40-60); Potassium 4.1 mmol/L (3.5-5.1); Sodium 141 mmol/L (136-145); Thyroid Stimulating Hormone 3.861 uIU/mL (0.358-3.740); Total Protein 7.5 g/dL (6.4-8.2); Triglycerides 130 mg/dL (<=150); VLDL CHOLESTEROL 26.0 mg/dL
[2025-05-04 07:28] LABS: Iron 81.0 ug/dL (50.0-170.0)
== END 2025-05-04 06:31 | disposition home or self-care (01) ==
LOC: LAB 06:30
PROVIDERS: PCP Nurse Practitioner Family; Visit Provider Nurse Practitioner Family
DX: Z00.00 Encounter for general adult medical examination without abnormal findings (principal)
CPT/HCPCS: 36415; 80053; 80061; 83036; 83525; 83540; 84436; 84443; 84481; 85025

== ENCOUNTER 2025-08-17 09:30 | Outpatient (OUT) | payer OTHER, SELFPAY ==
[2025-08-17 11:09] LABS: Alanine Aminotransferase 22 U/L (14-59); Albumin Globulin Ratio 0.9; Albumin Level 3.5 g/dL (3.4-5.0); Alkaline Phosphatase 87 U/L (46-116); Anion Gap 13.4; Aspartate Amino Transferase 13 U/L (15-37); Blood Urea Nitrogen 9.0 mg/dL (7.0-18.0); Calcium 9.1 mg/dL (8.5-10.1); Carbon Dioxide 28.7 mmol/L (21.0-32.0); Chloride 104 mmol/L (98-107); Cholesterol 195 mg/dL (<=200); Estimated GFR (African America >60 (>=60 mL/min/1.73m^2); Estimated GFR (Non-African Ame >60 (>=60 mL/min/1.73m^2); Globulin 3.9 g/dL; Glucose 98 mg/dL (74-106); HDL Cholesterol 49 mg/dL (40-60); Potassium 4.1 mmol/L (3.5-5.1); Sodium 142 mmol/L (136-145); Total Protein 7.4 g/dL (6.4-8.2); Triglycerides 137 mg/dL (<=150); VLDL CHOLESTEROL 27.4 mg/dL
== END 2025-08-17 09:31 | disposition home or self-care (01) ==
LOC: LAB 09:32
PROVIDERS: PCP Nurse Practitioner Family; Visit Provider Nurse Practitioner Family
DX: Z79.899 Other long term (current) drug therapy (principal); E78.00 Pure hypercholesterolemia, unspecified
CPT/HCPCS: 36415; 80053; 80061

== ENCOUNTER 2025-08-21 06:37 | Emergency (ER) | payer OTHER, SELFPAY ==
--- OUTSIDE RECORDS SUMMARY | 2025-08-08 10:45 | XMS_ITS ---
Author Organization [facility] in [place] Address [address] [place] [address] Care Team Providers Care Packing Tractor Machine Operator Name Role Phone Rachel Plata Primary Care Provider Te Arteaga [phone] REASON FOR VISIT weight check Vital Signs Weight 236.4 lbs 08/08/2025 Height 65 in 08/08/2025 Blood pressure systolic 152 mm Hg 08/08/20 25 Blood pressure diastolic 78 mm Hg 025 BMI 39.33 kg/m2 08/08/2025 Encounters Encounter Location Date Provider Diagnosis [facility] [address] [facility] [place] [address] 08/08/2025 Te Arteaga Obese E66.9 Assessments Encounter Date Diagnosis (ICD Code) Assessment Notes Treatment Notes Treatment Clinical Notes Section Notes 08/08/2025 Obese (ICD-10 - E66.9) Plan Of Treatment No Information Progress Notes * Vianca BAILEY MDOB:[birth year] (55 yo F)Acc No.[id number]:08/08/2025 Nurse Visit Patient: Vianca ARZOLA :?Hank Arteaga ([facility]), MDDOB:1970???Age: 55 Y???Sex:FemaleDate:08/08/2025Phone:[phone]:[address] [id number]:Rachel Callejas In:03:47 PM ESTCheck Out:04:46 PM EST Subjective: * Chief Complaints: * 1 . Weight check. * Active Problem List E66.9 Obese Modified On:11/23/2023/U Status:hieswiaxyG73.9Class 2 obesity Modified On:08/08/2024/U Status:pdcxwufihE50.5Hyperlipidemia Modified On:05/04/2025/U Status:urfbkwvndR88.01Class 3 obesity Modified On:05/10/2025U Status:hvqhdrqwrU26.9Hypothyroid Modified On:05/10/2025U Status:cdqydfhreY95Gcmrhzep BP Modified On:06/14/2025 Status:confirmed * Medical History: Objective: * Vitals: W t:236.4lbs, Ht: 65 in, BP:152/78mm Hg, BMI:39.33Index, Ht-cm: 165.1 cm, Wt-k.23 kg. Assessment: * Assessment: 1.?Obese - E66.9 (Primary)??? Plan: * Treatment: * Procedure Codes: 3 078F DIAST BP < 80 MM HG, 3077F SYST BP > OR = 140 MM HG * * Sign off status: CompletedVisit Status:?CHK (Check Out) true * Provider: Jenn Arteaga ([facility])MD Date: 10/09/2024 Generated for Printing/Faxing/eTransmitting on:?08/21/2025 07:58 AM EST
--- OUTSIDE RECORDS SUMMARY | 2025-08-08 10:55 | XMS_ITS ---
Author Organization [facility] in [place] Address [address] [place] [address] Care Team Providers Care Hedis Specialist Name Role Phone Rachel Plata Primary Care Provider [phone] REASON FOR VISIT Weight/BP Medications Medication SIG (Take, Route, Frequency, Duration) Notes Start Date End Date Status Irbesartan 150 MG 1 tablet Orally Once a day; Du ration: 30 days 5Active Problems Problem Type SNOMED Code ICD Code Onset Dates Problem Status W/U Status Risk Notes Problem Hypertension (30195762) HTN (hypertension ) (I10) Activeconfirmed Encounters Encounter Location Date Provider Diagnosis [facility] [address] [facility] [place] [address] 08/08/2025 Rachel Plata HTN (hypertension) I10 Assessments Encounter Date Diagnosis (ICD Code) Assessment Notes Treatment Notes Treatment Clinical Notes Section Notes 08/08/2025 HTN (hypertension) (ICD-10 - I10 ) Plan Of Treatment Medication Medication Name Sig Start Date Stop Date Notes Irbesartan 150 MG 1 tablet Orally Once a day; Duration : 30 days 08/09/2025 Progress Notes * Vianca BAILEY MDOB:[birth year] (55 yo F)Acc No.[id number]:08/08/2025 Patient:?Vianca BAILEY :1970???Age:55 Y???Sex:FemalePhone:[phone] Address:[facility] [place] [address] * Refills Start Irbesartan Tablet, 150 MG, Orally, 30 Tablet, 1 tablet, Once a day, 30 days, Refills=11 Subjective: * Chief Complaints: * W eight/BP * Medical History: * Surgical History: * Hospitalization/Major Diagno stic Procedure: * Medications: Objective: * Vitals: * Physical Examination: ??? Assessment: * Assessment: 1.?HTN (hypertension) - I10 (Primary)??? Plan: * Treatment: Start Irbesartan Tablet, 150 MG, 1 tablet, Orally, Once a day, 30 days, 30 Tablet, Refills 11.?? * Procedure Codes: * true * Date:?Generated for Printing/Faxing/eTransmitting on:?08/21/2025 07:58 AM EST
--- OUTSIDE RECORDS SUMMARY | 2025-08-13 06:18 | XMS_ITS ---
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 Name Role Phone Rachel Plata Primary Care Provider Results Component Value Reference Range Notes LIPID PROFILE Reviewed date:08/20/2025 04:09:21 PM Interpretation: Performing Lab: Notes/Report: [facility] , Triglycerides 137 <=150 mg/dL Hsmpbbkgypj888<=200 mg/dLHDL Liktibyrdez3008-68 mg/dL > or =60 mg/dl - LOW CARDIOVASCULAR RISK <40 mg/dl - HIGH CARDIOVASCULAR RISK LDL Cholesterol Waufpysnvb261.6 <100 mg/dl OPTIMAL 100-129 mg/dl NEAR OR ABOVE OPTIMAL 130-159 mg/dl BORDERLINE HIGH 160-189 mg/dl HIGH >190 mg/dl VERY HIGH VLDL MINIZMSGDDM67.4Chol HDL Ratio4.0 3.3 - 4.4 LOW RISK 4.4 - 7.1 AVERAGE RISK 7.1 - 11.0 MODERATE RISK >11.0 HIGH RISK Performing Lab:see noteML - [facility] LBPROF 14(COMP METB) Reviewed date:08/20/2025 04:09:21 PM Interpretation: Performing Lab: Notes/Report: [facility] ,Wnxwbq821402-298 mmol/LPotassium4.13.5-5.1 mmol/TPtjgvdjw33859-553 mmol/LCarbon Moglavi29.721.0-32.0 mmol/LAnion Gap13.9Myfykrr9469-812 mg/dLBlood Urea Nitrogen 9.07.0-18.0 mg/dLCreatinine0.760.55-1.02 mg/dLEstimated GFR ( Lili>60 >=60 mL/min/1.73m 2Estimated GFR (Non- Bianca>60>=60 mL/min/1.73m 2BUN Creatinine Ratio11.2Gqrtsbb9.18.5-10.1 mg/dLBilirubin Total0.40.2-1.0 mg/dL Aspartate Amino Uimbzkmjuai8922-24 U/LAlanine Cutqueimvyhjunmd8832-07 U/L Alkaline Mjmlzcephrk5581-664 U/LTotal Protein7.46.4-8.2 g/dLAlbumin Level3.53.4- 5.0 g/dLGlobulin3.9Albumin Globulin Ratio0.9Performing Lab:see noteML - [facility] REASON FOR VISIT Labs Problems Problem Type SNOMED Code ICD Code Onset Dates Problem Status W/U Status Risk Notes Problem hypercholesterolemia (disorder) (83419865 ) Hypercholesteremia (E78.00) Activeconfirmed Encounters Encounter Location Date Provider Diagnosis [facility] [address] [place] [address] 08/13/2025 Rachel Sherlyn Hypercholesteremia E 78.00 and Medication management Z79.899 Assessments Encounter Date Diagnosis (ICD Code) Assessment Notes Treatment Notes Treatment Clinical Notes Section Notes 08/13/2025 Hypercholesteremia (ICD-10 - E78 .00) 08/13/2025Medication management (ICD-10 - Z79.899) Plan Of Treatment No Information Progress Notes * Vianca BAILEY MDOB:[birth year] (55 yo F)Acc No.[id number]:08/13/2025 Patient:?Vianca BAILEY :1970???Age:55 Y???Sex:FemalePhone:[phone] Address:[address] [place] [address] Subjective: * Chief Complaints: * L abs * Medical History: * Surgical History: * Hospitalization/Major Diagno stic Procedure: * Medications: Objective: * Vitals: * Physical Examination: ??? Assessment: * Assessment: 1.?Hypercholesteremia - E78.00 (Primary)???2.?Medication management - Z79.899??? Plan: * Treatment: ?LAB: LIPID PROFILE2.?Medication management?LAB: PROF 14(COMP METB) * Procedure Codes: * true * Date:?Generated for Printing/Faxing/eTransmitting on:?08/21/2025 07:58 AM EST
[2025-08-21 06:42] VITALS: BP 149/101; PULSE 73; TEMP 36.4; O2SAT 100; BMI 38.6
[2025-08-21 07:11] LABS: Hematocrit 40.2 % (36.0-48.0); Hemoglobin 13.8 g/dL (12.0-16.0); Immature Granulocytes Abs Auto 0.01 10^3/uL (0.00-0.03); Immature Granulocytes Pct Auto 0.2 % (0.0-0.5); Lymphocytes Absolute Auto 2.6 10^3/uL (1.2-3.8); Mean Corpuscular HGB Conc 34.3 g/dL (29.9-35.2); Mean Corpuscular Hemoglobin 29.6 pg (26.7-34.0); Mean Corpuscular Volume 86.3 fL (81.0-99.0); Platelet Count 340 10^3/uL (150-450); Red Blood Count 4.66 10^6/uL (4.20-5.40); White Blood Count 6.0 10^3/uL (4.0-11.0)
[2025-08-21] MEDS: KETOROLAC TROMETHAMINE 30 MG/ML VIAL 15 MG IVP (07:29)
[2025-08-21 07:31] LABS: Alanine Aminotransferase 24 U/L (14-59); Albumin Globulin Ratio 0.9; Albumin Level 3.7 g/dL (3.4-5.0); Alkaline Phosphatase 95 U/L (46-116); Anion Gap 16.1; Aspartate Amino Transferase 22 U/L (15-37); Blood Urea Nitrogen 10.0 mg/dL (7.0-18.0); Calcium 9.4 mg/dL (8.5-10.1); Carbon Dioxide 26.2 mmol/L (21.0-32.0); Chloride 103 mmol/L (98-107); Estimated GFR (African America >60 (>=60 mL/min/1.73m^2); Estimated GFR (Non-African Ame >60 (>=60 mL/min/1.73m^2); Globulin 4.1 g/dL; Glucose 111 mg/dL (74-106); Potassium 4.3 mmol/L (3.5-5.1); Sodium 141 mmol/L (136-145); Total Protein 7.8 g/dL (6.4-8.2)
--- OUTSIDE RECORDS SUMMARY | 2025-08-21 07:58 | XMS_ITS | Patient Health Record ---
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 Phone Rachel Plata Primary Care Provider [phone] CorneliusgonzaloTe Unavailable [phone] Allergies Allergen (clinical drug ingredient) Drug/Non Drug Allergy documented on EMR Reaction Allergy Type Onset Date Status ciprofloxacin Cipro anaphylaxis Drug Allergy ActiveKeflexanaphylaxisDrug AllergyActivenaproxenNaprosynanaphylaxisDrug Allergy ActiveLatexLatexanaphylaxisAllergyActiveShellfish (FN)Shellfish-derived Products anaphylaxisDrug AllergyActivePenicillinanaphylaxisDrug AllergyActive Results Component Value Reference Range Notes LIPID PROFILE Reviewed date:08/20/2025 04:09:21 PM Interpretation: Performing Lab: Notes/Report: [facility] , Triglycerides 137 <=150 mg/dL Cosjjtdcwvc686<=200 mg/dLHDL Oxeteldvaoc2490-74 mg/dL > or =60 mg/dl - LOW CARDIOVASCULAR RISK <40 mg/dl - HIGH CARDIOVASCULAR RISK LDL Cholesterol Xwbybmtmwa769.6 <100 mg/dl OPTIMAL 100-129 mg/dl NEAR OR ABOVE OPTIMAL 130-159 mg/dl BORDERLINE HIGH 160-189 mg/dl HIGH >190 mg/dl VERY HIGH VLDL YFMIEZWQFOD62.4Chol HDL Ratio4.0 3.3 - 4.4 LOW RISK 4.4 - 7.1 AVERAGE RISK 7.1 - 11.0 MODERATE RISK >11.0 HIGH RISK Performing Lab:see noteML - [facility] LBPROF 14(COMP METB) Reviewed date:08/20/2025 04:09:21 PM Interpretation: Performing Lab: Notes/Report: [facility] ,Hosvtj621816-867 mmol/LPotassium4.13.5-5.1 mmol/CPrcygzer46993-266 mmol/LCarbon Pzrkbkl09.721.0-32.0 mmol/LAnion Gap13.7Wmahhcj2696-925 mg/dLBlood Urea Nitrogen 9.07.0-18.0 mg/dLCreatinine0.760.55-1.02 mg/dLEstimated GFR ( Lili>60 >=60 mL/min/1.73m 2Estimated GFR (Non- Bianca>60>=60 mL/min/1.73m 2BUN Creatinine Ratio11.3Kpuinai5.18.5-10.1 mg/dLBilirubin Total0.40.2-1.0 mg/dL Aspartate Amino Jfjxnyooeux8044-90 U/LAlanine Lpsrazxzvznbdacp1112-26 U/L Alkaline Oebwfefipme6838-593 U/LTotal Protein7.46.4-8.2 g/dLAlbumin Level3.53.4- 5.0 g/dLGlobulin3.9Albumin Globulin Ratio0.9Performing Lab:see noteML - [facility] LBCBC AUTO DIFF Reviewed date:05/04/2025 10:24:36 AM Interpretation: Performing Lab: Notes/Report: [facility] ,White Blood Count5.14.0-11.0 10 3/uLRed Blood Count4.424.20-5.40 10 6/uL Jhdemweupo63.812.0-16.0 g/wLAbbbsbyink22.836.0-48.0 %Mean Corpuscular Flxisi77.8 81.0-99.0 fLMean Corpuscular Dfxqmphacc43.026.7-34.0 pgMean Corpuscular HGB Conc 33.029.9-35.2 g/dLRed Cell Distribution Width13.111.0-15.0 %Platelet Vbfbv958 150-450 10 3/uLMean Platelet Volume9.89.5-13.5 fLNeutrophils Percent Auto45.3 43.0-75.0 %Lymphocytes Percent Auto44.120.5-60.0 %Monocytes Percent Auto5.91.7- 12.0 %Eosinophils Percent Auto3.70.9-7.0 %Basophils Percent Auto0.80.2-2.0 % Immature Granulocytes Pct Auto0.20.0-0.5 %Neutrophils Absolute Auto2.31.4-6.5 10 3/uLLymphocytes Absolute Auto2.31.2-3.8 10 3/uLMonocytes Absolute Auto0.30.3-0.8 10 3/uLEosinophils Absolute Auto0.20.0-0.7 10 3/uLBasophils Absolute Auto0.00.0- 0.1 10 3/uLImmature Granulocytes Abs Auto0.010.00-0.03 10 3/uLPerforming Lab:[facility] LBFREE T3 Reviewed date:05/04/2025 10:24:37 AM Interpretation: Performing Lab: Notes/Report: [facility] ,Free T32.672.18-3.98 pg/mLPerforming Lab:see [facility] GLYCOHEMOGLOBIN A1C Reviewed date:05/04/2025 10:24:37 AM Interpretation: Performing Lab: Notes/Report: [facility] ,Glycohemoglobin A1C5.64.5-6.2 % ADA RECOMMENDED LIMIT 4.0 - 6.0 ADA THERAPEUTIC TARGET < 7.0 ACTION SUGGESTED > 7.0 Estimated Average Etiidey324Lcnmxzduwh Lab:see [facility] INSULIN Reviewed date:05/08/2025 11:13:04 AM Interpretation: Performing Lab: Notes/Report: [facility] ,Urkfide86.92.6-24.9 uIU/mL Performed at: - [facility] [id number] Senior Software Analyst: Patrick Hamilton PhD, Phone: [phone] Performing Lab[facility] LBIRON Reviewed date:05/04/2025 10:24:37 AM Interpretation: Performing Lab: Notes/Report: [facility] ,Iron81.050.0-170.0 ug/dLPerforming Lab:see [facility] LB LIPID PROFILE Reviewed date:05/04/2025 10:24:37 AM Interpretation: Performing Lab: Notes/Report: [facility] ,Flvlrkoguloyz299<=150 mg/tMWwahchvmnov114<=200 mg/dLHDL Txvvuvsvwuq7770-35 mg/dL > or =60 mg/dl - LOW CARDIOVASCULAR RISK <40 mg/dl - HIGH CARDIOVASCULAR RISK LDL Cholesterol Otnjqzyvpm097.0 <100 mg/dl OPTIMAL 100-129 mg/dl NEAR OR ABOVE OPTIMAL 130-159 mg/dl BORDERLINE HIGH 160-189 mg/dl HIGH >190 mg/dl VERY HIGH VLDL TOSWVREYGXK52.0Chol HDL Ratio5.1 3.3 - 4.4 LOW RISK 4.4 - 7.1 AVERAGE RISK 7.1 - 11.0 MODERATE RISK >11.0 HIGH RISK Performing Lab:see noteML - [facility] LBPROF 14(COMP METB) Reviewed date:05/04/2025 10:24:37 AM Interpretation: Performing Lab: Notes/Report: [facility] ,Rnmzpm492922-785 mmol/LPotassium4.13.5-5.1 mmol/NCwpwbtwj23070-778 mmol/LCarbon Rgvspzh25.021.0-32.0 mmol/LAnion Gap11.5Hsnczgd24168-788 mg/dLBlood Urea Cohrjejv50.07.0-18.0 mg/dLCreatinine0.650.55-1.02 mg/dLEstimated GFR ( Lili>60>=60 mL/min/1.73m 2Estimated GFR (Non- Bianca>60>=60 mL/min/1.73m 2BUN Creatinine Ratio20.3Weikpyy7.98.5-10.1 mg/dLBilirubin Total0.40.2-1.0 mg/dL Aspartate Amino Ukvxrvgiovp2306-99 U/LAlanine Oagxxfaefimtxipz8383-77 U/L Alkaline Ubsikjlcbre9736-909 U/LTotal Protein7.56.4-8.2 g/dLAlbumin Level3.73.4- 5.0 g/dLGlobulin3.8Albumin Globulin Ratio1.0Performing Lab:see note - [facility] LBT4 Reviewed date:05/04/2025 10:24:37 AM Interpretation: Performing Lab: Notes/Report: [facility] ,T4 Thyroxine8.004.80-13.90 ug/dLPerforming Lab:see noteML - [facility] LBTSH Reviewed date:05/04/2025 10:24:37 AM Interpretation: Performing Lab: Notes/Report: [facility] ,Thyroid Stimulating Hormone3.8610.358-3.740 uIU/mLPerforming Lab:see noteML - [facility] LBCBC AUTO DIFF (Not yet reviewed by provider) Interpretation: Performing Lab: Notes/Report: [facility] ,White Blood Count6.04.0-11.0 10 3/uLRed Blood Count4.664.20-5.40 10 6/uL Adzjklkvhv13.812.0-16.0 g/pOKjcacmtxjp47.236.0-48.0 %Mean Corpuscular Buiqaf68.3 81.0-99.0 fLMean Corpuscular Imrrokzdnf37.626.7-34.0 pgMean Corpuscular HGB Conc 34.329.9-35.2 g/dLRed Cell Distribution Width12.711.0-15.0 %Platelet Thasw418 150-450 10 3/uLMean Platelet Rcvtrb26.29.5-13.5 fLNeutrophils Percent Auto46.8 43.0-75.0 %Lymphocytes Percent Auto42.720.5-60.0 %Monocytes Percent Auto6.21.7- 12.0 %Eosinophils Percent Auto3.30.9-7.0 %Basophils Percent Auto0.80.2-2.0 % Immature Granulocytes Pct Auto0.20.0-0.5 %Neutrophils Absolute Auto2.81.4-6.5 10 3/uLLymphocytes Absolute Auto2.61.2-3.8 10 3/uLMonocytes Absolute Auto0.40.3-0.8 10 3/uLEosinophils Absolute Auto0.20.0-0.7 10 3/uLBasophils Absolute Auto0.10.0- 0.1 10 3/uLImmature Granulocytes Abs Auto0.010.00-0.03 10 3/uLPerforming Lab:see noteML - [facility] LBPROF 14(COMP METB) (Not yet reviewed by provider) Interpretation: Performing Lab: Notes/Report: [facility] ,Gsvvjn369712-158 mmol/LPotassium4.33.5-5.1 mmol/DVkxvarnx85112-155 mmol/LCarbon Qkijorp93.221.0-32.0 mmol/LAnion Gap16.4Sojymhl22711-962 mg/dLBlood Urea Fnujbahd59.07.0-18.0 mg/dLCreatinine0.820.55-1.02 mg/dLEstimated GFR ( Lili>60>=60 mL/min/1.73m 2Estimated GFR (Non- Bianca>60>=60 mL/min/1.73m 2BUN Creatinine Ratio12.2Ruylxlx4.48.5-10.1 mg/dLBilirubin Total0.40.2-1.0 mg/dL Aspartate Amino Ndoijeegowz7460-52 U/LAlanine Nynvycsxhpdjqpsd9520-48 U/L Alkaline Cqxhwaglxpv8864-580 U/LTotal Protein7.86.4-8.2 g/dLAlbumin Level3.73.4- 5.0 g/dLGlobulin4.1Albumin Globulin Ratio0.9Performing Lab:see noteML - [facility] LBCOVID-19, Flu A+B IH (Not yet reviewed by provider) Interpretation: Performing Lab: Notes/Report: COVIDnegFLU ApositiveFLU BnegControlpresent Reason For Referral No Information Medications Medication SIG (Take, Route, Frequency, Duration) Notes Start Date End Date Status Omeprazole 40 MG 1 capsule 30 minutes before morning meal Orally Once a day; Duration: 90 days 4ActiveSimvastatin 40 MGTAKE 1 TABLET BY MOUTH ONCE EVERY EVENING; Duration: 90 daysActiveAdipex-P 37.5 MG1 tablet before breakfast Orally Once a day; Duration: 30 days5ActiveLevothyroxine Sodium 175 MCGTAKE 1 TABLET BY MOUTH ONCE EVERY MORNING ON AN EMPTY STOMACH; Duration: 90 daysActive Montelukast Sodium 10 MGTAKE 1 TABLET BY MOUTH EVERY NIGHT; Duration: 90Active Irbesartan 150 MG1 tablet Orally Once a day; Duration: 30 days5Active FLUoxetine HCl 20 MG2 capsule Once a day; Duration: 90 daysActiveIbuprofen 800 MGTAKE 1 TABLET BY MOUTH EVERY 8 HOURS WITH FOOD OR MILK NEEDED; Duration: 30 Active Social History Tobacco Use: Social History Observation Description Date Details (start date - stop date) Former Smoker 09/06/2004 - 09/06/2008 Tobacco Use/Smoking Question Answer Notes Patient is a former smoker When did you start smoking?09/06/2004When did you stop smoking?09/06/2008How long has it been since you last smoked?5-10 yearsAdditional Findings: Tobacco Tpg-VubtYb-orrpcsry cigarette smoker (10-19/day)Alcohol Screen (Audit-C) Question Answer Notes Did you have a drink containing alcohol in the p ast year? No Etenef4VlfmjtgbttcamfJapyhoyrGlsjwmo use other than smoking: Question Answer Notes Are you an other tobacco user? Yes e x chewer- 32 years AUDIT-C (Standard) Question Answer Notes Did you have a drink containing alcohol in the p ast year? No Qsunjz8NqtaybnxegiwctKhkskadi Problems Problem Type SNOMED Code ICD Code Onset Dates Problem Status W/U Status Risk Notes Problem Hyperlipidemia (31111413) Hyperlipidemia (E78.5) ActiveconfirmedProblemHypertension (84391353)HTN (hypertension) (I10)Active confirmedProblemHypothyroid (15244665)Hypothyroid (E03.9)ActiveconfirmedProblem Obese (836125051)Obese (E66.9)ActiveconfirmedProblemhypercholesterolemia (disorder) (48531965)Hypercholesteremia (E78.00)ActiveconfirmedProblemObese class II (finding) (703841367683718)Class 2 obesity (E66.9)Activeconfirmed ProblemObese class III (finding) (522617504)Class 3 obesity (E66.01)Active confirmed Vital Signs Heart Rate 74 /min 11/14/2024 Svqmrtiqbas05.4 degrees Lfuopbbnzj32/11/9705Liwrqkpq37 %11/14/2024lood pressure oivqrtwzz75 mm Hg08/08/20250302Zqvtka97 in08/08/2025lood pressure nepxenvy909 mm Hg 08/08/20254045Nkxaws100.4 lbs110/09/2024BMI39.33 kg/m208/08/2025 Encounters Encounter Location Date Provider Diagnosis [facility] [address] [place] [address] 10/17/2024 Te Arteaga Class 2 obesity E66. 9 [facility] [address] [facility] [place] [address] 08/08/2025 [place] Obese E66.9 [facility] [address] [facility] [place] [address] 09/14/2024 Rachel Plata Class 2 obesity E66. 9 [facility] [address] [facility] [place] [address] 10/25/2024 [place] Body aches R52 ; Fev er R50.9 and Acute bronchitis, unspecified organism J20.9 [facility] [address] [facility] [place] [address] 11/14/2024 Rachel Plata Bronchitis J40 [facility] [address] [facility] [place] [address] 05/10/2025 Rachel Plata Hyperlipidemia E78.5 ; Class 3 obesity E66.01 and Hypothyroid E03.9 [facility] [address] [facility] [place] [address] 06/14/2025 Rachel Plata Class 3 obesity E66. 01 and Elevated BP I10 [facility] [address] [facility] [place] [address] 07/12/2025 Rachel Plata Class 2 obesity E66. 9 and Elevated BP I10 [facility] [address] [facility] [place] [address] 08/13/2025 Rachel Plata Hypercholesteremia E 78.00 and Medication management Z79.899 [facility] [address] [facility] [place] [address] 08/20/2025 Rachel Plata [facility] [facility] [place] [address] 04/23[facility]20[facility] [facility] [place] [address]/29/2025Rachel Plata [facility] [facility] [place] [address] 05/10/2025Rachel PlataClass 3 obesity E66.01[place] [address] [facility] [place] [address]/02/2025[facility] PlataBuSt[facility] [facility] [place] [address]/06/2025Rachel PlataClass 2 obesity E66.9B[facility] [facility] [place] [address]/11/2024Rachel Frederick (hypertension) [facility]03[facility]xlg[facility] [facility] [place] [address]/03/2025 [place] [address] [facility] [place] [address]/07/2025Rachel PlataClass 2 obesity E66.9BCon[place] [address] [facility] [place] [address]/Doug HoRylieChildren[facility] [facility] [place] [address]/ [facility]ata[facility] [place] [address]/Rachel Plata Assessments Encounter Date Diagnosis (ICD Code) Assessment Notes Treatment Notes Treatment Clinical Notes Section Notes 09/14/2024 Class 2 obesity (ICD-10 - E66.9) work on diet discussed need for at least 5% wt loss in next 2 months to be able to continue med wt check one month fu apt 2m 10/17/2024lass 2 obesity (ICD-10 - E66.9)10/25/2024Fever (ICD-10 - R50.9) 10/25/2024ody aches (ICD-10 - R52)11/14/2024ronchitis (ICD-10 - J40) fu if not improving CXR , sputum cx next steps ok for OWN 05/10/2025Hyperlipidemia (ICD-10 - E78.5) was on statin, just stopped taking, not sure why has two bottles at home, continue statin notify office when needs refill repeat labs 3m 05/10/2025lass 3 obesity (ICD-10 - E66.01) work on diet fu 1 m 06/14/2025Elevated BP (ICD-10 - I10) continue to monitor recheck better 06/14/2025lass 3 obesity (ICD-10 - E66.01) work on diet fu 1m 07/12/2025lass 2 obesity (ICD-10 - E66.9) continue work on diet ok for fu me 3 months now [place] for wt checks for refills next 2 months 08/08/2025Obese (ICD-10 - E66.9)10/17/2024lass 2 obesity (ICD-10 - E66.9) 04/23/2025Wellness examination (ICD-10 - Z00.00)05/10/2025lass 3 obesity (ICD- 10 - E66.01)07/16/2025lass 2 obesity (ICD-10 - E66.9)08/08/2025HTN (hypertension) (ICD-10 - I10)08/13/2025Medication management (ICD-10 - Z79.899) 08/13/2025Hypercholesteremia (ICD-10 - E78.00)07/12/2025Elevated BP (ICD-10 - I10)recheck couple weeks05/10/2025Hypothyroid (ICD-10 - E03.9)repeat labs 6 weeks10/25/2024ute bronchitis, unspecified organism (ICD-10 - J20.9)Rest and drink more liquids, especially water. You may use a humidifier or vaporizer to help keep the drainage moist. Gsyi-pym-jxeguhf Nasal Saline may help the stuffy and runny nose. Use Ibuprofen and or Tylenol as needed for fever, chills, body aches or pain. Children 5 years old should not be given qxfh-szd-wrrsuid cough and cold medications such as guaifenesin and dextromethorphan. If you're over age 5, you may try jfbt-wvl-pkzhjys cold medications such as guaifenesin and dextromethorphan, or multi-symptom cold reliever such as Dayquil to help reduce the symptoms. Antibiotics have been prescribed. You should take these until completed and follow the directions. Antibiotics can sometimescause upset stomach, and in rare cases, serious [...] PANEL (CHOL/TRIG/HDL/LDL) 05/07/20 23 CBC WITH DIFF (EXP 07/2025) 05/15/2024 VITAMIN D, 25 LEVEL (TOTAL) 04/23/2025 Insulin Level 04/23/2025 PSA, TOTAL 05/15/2024 Rapid COVID-19 Ag 05/11/2024 COVID-19, Flu A+B IH 08/08/2024 COVID-19, Flu A+B IH 10/25/2024 CBC AUTO DIFF 08/21/2025 Covid-19 PCR (CVDTBH) 05/15/2024 PROF 14(COMP METB) 08/21/2025 THYROID PANEL (T4/TSH/FREE T3) 5 THYROID PANEL (T4/TSH/FREE T3) 3 THYROID PANEL (T4/TSH/FREE T3) 5 THYROID PANEL (T4/TSH/FREE T3) 4 CMP (COMP MET WILDER) w/eGFR CKD-EPI 2024 CBC WITH DIFF 04/23/2025 Insurance Providers Payer Name Payer Address Payer Phone Subscriber Number Group Number Insured Name Patient Relationship to Insured Coverage Start Date Coverage End Date [employer] [address] [address] [place] [address] [id number] Vianca Hodges Self - patien t is the insured Medical (General) History Medical History History ICD Code Alcohol abuse F10.10 Asthma J45.909 Arthritis M19.90 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
--- OUTSIDE RECORDS SUMMARY | 2025-08-21 07:58 | XMS_ITS | Clinical Summary ---
Author Organization [facility] Address [address] [place] [address] Care Team Providers Care Cylinder Batcher Name Role Phone Unavailable Primary Care Provider Unavailabl e Social History Tobacco UseTypesPacks/DayYears UsedDateSmoking Tobacco: Never Assessed CommentsUnknownSex and Gender InformationValueDate RecordedSex Assigned at Not on fileLegal GtiClzepv30/15/2023 6:35 PM EDTGender IdentityNot on fileSexual OrientationNot on file Plan of Treatment Not on file
--- NOTE | 2025-08-21 08:00 | CT_ITS ---
The [address] [address] Patient Name: TOÑITO BAILEY MRN: [id number] date: 1970 Sex: F Assigned Patient Location: ER Current Patient Location: ER Accession/Order Number: [id number] Exam Date: 08/21/2025 08:05 Report Date: 08/21/2025 08:42 At the request of: ELVER RAYMOND MD Procedure: CT abdomen pelvis wo con CT ABDOMEN AND PELVIS WITHOUT CONTRAST COMPARISON: None CLINICAL DATA: Right flank pain for the past 2 days. Spiral images were obtained through the abdomen and pelvis without contrast. This CT exam was performed using one or more following dose reduction techniques: Automated exposure control, adjustment of the mA and/or kV according to patient size, or use of iterative reconstruction technique. Limited cuts through the lung bases show no contributory findings. Evaluation of the intra-abdominal organs is slightly limited by the absence of contrast. No calcified gallstones are identified. No intrahepatic masses are seen. The spleen, pancreas and adrenal glands show no acute findings. No renal calculi or hydronephrosis are identified. No ureteral dilatation or stones are seen. The abdominal aorta is normal caliber and there is mild atherosclerotic disease. There are tiny lymph nodes. No ascites is present. The small bowel loops are normal caliber. There is a small amount of colonic stool and air at the right. The colon is otherwise decompressed. Slight levoscoliotic curvature and mild degenerative changes are visualized at the spine. Images through the pelvis show no appendiceal inflammation. The small bowel loops are not dilated. There is mild distal colonic stool. No diverticular disease is noted. The uterus is dextroverted. No adnexal cysts are seen. The urinary bladder shows no abnormalities for the limited degree of distention. No ascites is identified. CT/CT abdomen pelvis wo con IMPRESSION: NO BOWEL OR URINARY TRACT OBSTRUCTION. NO ACUTE FINDINGS. Impression dictated by: Leena Moulton M.D. 08/21/2025 8:42 AM Dictation Location: [employer] Electronically authenticated by: [id number] Y Date: 08/21/2025 08:42
--- NOTE | 2025-08-21 08:56 | ED.FEMALEGU1 ---
HPI - Female Genitourinary General Chief complaint: Urogenital-Female Stated complaint: POSS KIDNEY STONE Time Seen by Provider: 08/21/25 07:05 History of Present Illness HPI Narrative: The patient is 55-year-old presenting to us with a right flank pain that started yesterday, she mentioned that the pain is a continuous stabbing-like, sometimes feels like cramping. And radiate to the anterior abdomen. There is some nausea no vomiting although she vomited 1 time on the first day This all started yesterday and the patient have no diarrhea no constipation no fever no chills no difficulty breathing any cough No burning with urination Related Data Home Medications ?Medication ?Instructions ?Recorded ?Confirmed cetirizine 10 mg capsule (All Day 10 mg PO DAILY 08/21/25 08/21/25 Allergy (cetirizine)) irbesartan 150 mg tablet mg 08/21/25 levothyroxine 150 mcg tablet mcg 08/21/25 multivitamin with iron 1 tab PO DAILY 08/21/25 08/21/25 omeprazole 40 mg capsule,delayed mg 08/21/25 release phentermine 37.5 mg tablet mg 08/21/25 simvastatin 40 mg tablet mg 08/21/25 Previous Rx's ?Medication ?Instructions ?Recorded ibuprofen 800 mg tablet 800 mg PO Q8H #10 tabs 08/21/25 orphenadrine citrate 100 mg 100 mg PO BID PRN muscle spasm #20 08/21/25 tablet,extended release tabs Allergies Allergy/AdvReac Type Severity Reaction Status Date / Time Iodinated Contrast Media Allergy Severe Anaphylaxis Verified 08/21/25 07:01 naproxen Allergy Severe Anaphylaxis Verified 08/21/25 07:01 shellfish derived Allergy Severe Anaphylaxis Verified 08/21/25 07:01 Penicillins Allergy Intermediate Hives Verified 08/21/25 07:01 Review of Systems ROS Status of ROS 10 or more systems reviewed and unremarkable except as noted in history and below PFSH PFSH Social History Little interest or pleasure in doing things: not at all Feeling down, depressed, or hopeless: not at all Exam Narrative Exam Narrative: Nurses notes and vital signs reviewed and patient is not hypoxic. General: Well-appearing and in no apparent distress. Skin: Warm, dry, no pallor noted. No rash. Head: Normocephalic, atraumatic. Neck: Supple, non-tender. Cardiovascular: Regular Rate and Rhythm without murmur, gallop or rub. Respiratory: No accessory muscle use or respiratory distress. Lungs are clear to auscultation, no wheezing, rales or rhonchi Chest Wall: no tenderness Back: No midline thoracic or lumbar vertebral tenderness. The patient have a right CVA tenderness in addition to also superficial palpation with enough to elicit the pain with no lesions to the skin that is noted Musculoskeletal: normal ROM, no calf or popliteal tenderness, no lower extremity edema/swelling GI: Abdomen is soft, non-distended. Normal bowel sounds. No masses appreciated. No tenderness to palpation. No rebound, guarding, or rigidity noted. Neurological: A&O x4. No cranial nerve dysfunction observed. No truncal ataxia. Moves all extremities. Sensation intact. Psychiatric: Cooperative and interactive. Normal mood and affect. Constitutional Vital Signs, click to edit/add: Last Vital Signs Temp 97.5 F L 08/21/25 06:42 Pulse 73 08/21/25 06:42 Resp 20 08/21/25 06:42 BP 149/101 H 08/21/25 06:42 Pulse Ox 100 08/21/25 06:42 O2 Del Method Room Air 08/21/25 06:42 Course Vital Signs Vital signs: Vital Signs Temperature 97.5 F L 08/21/25 06:42 Pulse Rate 73 08/21/25 06:42 Respiratory Rate 20 08/21/25 06:42 Blood Pressure 149/101 H 08/21/25 06:42 Pulse Oximetry 100 08/21/25 06:42 Oxygen Delivery Method Room Air 08/21/25 06:42 Temperature 97.5 F L 08/21/25 06:42 Pulse Rate 73 08/21/25 06:42 Respiratory Rate 20 08/21/25 06:42 Blood Pressure 149/101 H 08/21/25 06:42 Pulse Oximetry 100 08/21/25 06:42 Oxygen Delivery Method Room Air 08/21/25 06:42 MDM - Female Genitourinary MDM Narrative Medical decision making narrative: The patient CBC showed no acute pathology Chemistry was within normal CAT scan of the abdomen pelvis showed no acute pathology The patient was feeling better after being treated with Toradol, noted that the patient had a history of allergy to naproxen but she does take ibuprofen and she did take Toradol before Because of patient history of allergy she will be discharged home with ibuprofen and Norflex With instructions to take all her medication with food and hydrate very well The patient to follow-up with the primary care within 2 to 3 days and to come back to the ER in case of any worsening of the current symptoms or any new symptoms or concerns Lab Data Labs: Lab Results 08/21/25 08/21/25 Range/Units 06:50 08:45 WBC 6.0 (4.0-11.0) 10^3/uL RBC 4.66 (4.20-5.40) 10^6/uL Hgb 13.8 (12.0-16.0) g/dL Hct 40.2 (36.0-48.0) % MCV 86.3 (81.0-99.0) fL MCH 29.6 (26.7-34.0) pg MCHC 34.3 (29.9-35.2) g/dL RDW 12.7 (11.0-15.0) % Plt Count 340 (150-450) 10^3/uL MPV 10.2 (9.5-13.5) fL Neut % (Auto) 46.8 (43.0-75.0) % Lymph % (Auto) 42.7 (20.5-60.0) % [place] % (Auto) 6.2 (1.7-12.0) % Eos % (Auto) 3.3 (0.9-7.0) % Baso % (Auto) 0.8 (0.2-2.0) % Neut # (Auto) 2.8 (1.4-6.5) 10^3/uL Lymph # (Auto) 2.6 (1.2-3.8) 10^3/uL [place] # (Auto) 0.4 (0.3-0.8) 10^3/uL Eos # (Auto) 0.2 (0.0-0.7) 10^3/uL Baso # (Auto) 0.1 (0.0-0.1) 10^3/uL Abs Immat Gran (auto) 0.01 (0.00-0.03) 10^3/uL Imm/Tot Granulo (auto) 0.2 (0.0-0.5) % Sodium 141 (136-145) mmol/L Potassium 4.3 (3.5-5.1) mmol/L Chloride 103 (98-107) mmol/L Carbon Dioxide 26.2 (21.0-32.0) mmol/L Anion Gap 16.1 BUN 10.0 (7.0-18.0) mg/dL Creatinine 0.82 (0.55-1.02) mg/dL Est GFR ( Amer) >60 (>=60 mL/min/1.73m^2) Est GFR (Non-Af Amer) >60 (>=60 mL/min/1.73m^2) BUN/Creatinine Ratio 12.2 Glucose 111 H (74-106) mg/dL Calcium 9.4 (8.5-10.1) mg/dL Total Bilirubin 0.4 (0.2-1.0) mg/dL AST 22 (15-37) U/L ALT 24 (14-59) U/L Alkaline Phosphatase 95 (46-116) U/L Total Protein 7.8 (6.4-8.2) g/dL Albumin 3.7 (3.4-5.0) g/dL Globulin 4.1 g/dL Albumin/Globulin Ratio 0.9 Urine Color Yellow (YELLOW) Urine Clarity Clear (CLEAR) Urine pH 6.0 (5.0-9.0) Ur Specific [place] 1.010 (1.005-1.025) Urine Protein Negative (NEG/TRACE) mg/dL Urine Glucose (UA) Negative (NEGATIVE) mg/dL Urine Ketones Negative (NEGATIVE) mg/dL Urine Occult Blood Negative (NEGATIVE) Urine Nitrite Negative (NEGATIVE) Urine Bilirubin Negative (NEGATIVE) Urine Urobilinogen 0.2 (0.2-1.0) EU/dL Ur Leukocyte Esterase Negative (NEGATIVE) Discharge Plan Discharge Chief Complaint: Urogenital-Female Clinical Impression: Back sprain Patient Disposition: Home, Self-Care Time of Disposition Decision: 09:14 Condition: Good Prescriptions / Home Meds: New orphenadrine citrate 100 mg tablet extended release 100 mg PO BID PRN (Reason: muscle spasm) Qty: 20 0RF ibuprofen 800 mg tablet 800 mg PO Q8H Qty: 10 0RF Discontinued ibuprofen 800 mg tablet No Action phentermine 37.5 mg tablet omeprazole 40 mg capsule,delayed release(DR/EC) simvastatin 40 mg tablet levothyroxine 150 mcg tablet irbesartan 150 mg tablet All Day Allergy (cetirizine) 10 mg capsule 10 mg PO DAILY multivitamin with iron Tablet 1 tab PO DAILY Print Language: German Instructions: Flank Pain (ED) Additional Instructions: Please take all medication with food and hydrate very well Referrals: SHELLEY DUARTE [Primary Care Provider, Family Practice] - 1 week Discharge Date/Time: 08/21/25 09:30
[2025-08-21 09:00] LABS: Glucose Urine UA NEGATIVE (NEGATIVE)
== END 2025-08-21 09:30 | disposition home or self-care (01) ==
PROVIDERS: Emergency Provider Emergency Medicine; PCP Nurse Practitioner Family
DX: S33.5XXA Sprain of ligaments of lumbar spine, initial encounter (principal); R10.31 Right lower quadrant pain; R11.0 Nausea
CPT/HCPCS: 36415; 74176; 80053; 81003; 85025; 96374; 96375; 99284; J1885; J2405